=== PATIENT | male | born 1940 | race Caucasian/White ===

== ENCOUNTER 2017-07-28 09:11 | Inpatient (IN) | payer MEDICARE, OTHER ==
[2017-07-28] VITALS (11 sets, daily range): BP systolic 100–137; BP diastolic 57–87
[~2017-07-28] VITALS: Ht 181.6 cm; Wt 123.4 kg
[2017-07-28] MEDS ORDERED: METOPROLOL TARTRATE 5 MG/5 ML VIAL. IV ONE ×2 (09:13→09:30)
[2017-07-28] MEDS ORDERED: DIGOXIN IV 500 MCG/2 ML AMPUL. IV ONE (09:30)
--- NOTE | 2017-07-28 10:00 | RAD ---
Chest radiograph 07/28/2017 9:42 AM INDICATION: Heart palpitations COMPARISON: Chest radiograph December 02, 2016 TECHNIQUE: Frontal view of the chest is provided. FINDINGS: The cardiomediastinal silhouette is borderline enlarged. There are no pleural effusions. There is mild pulmonary vascular congestion. There is no pneumothorax. There is a calcified granuloma in the right upper lobe measuring 5 mm. The lungs are clear. No significant osseous abnormality is identified. IMPRESSION: Borderline enlarged cardiomediastinal silhouette with mild pulmonary vascular congestion may be seen with congestive heart failure. Findings may be accentuated by poor inspiratory excursion. Short-term follow-up two-view chest radiograph may be of benefit. Electronically signed by: Rosa Grayson MD (07/28/2017 9:57 AM) [id number]
[2017-07-28 10:01] LABS: BASO % 0 % (0-3); EOS % 0 % (0-3); HEMATOCRIT 47.1 % (39.0-53.0); HEMOGLOBIN 15.1 g/dL (13.0-17.5); LYMPH # 0.5 x10^3/uL (1.0-4.8); LYMPH % 4 % (24-48); MEAN CORPUSCULAR HEMOGLOBIN 32 pg (25-35); MEAN CORPUSCULAR HGB CONC 32 g/dL (31-37); MEAN CORPUSCULAR VOLUME 101 fL (79-100); MONO # 1.2 x10^3/uL (0.0-1.1); MONO % 9 % (0-9); NEUT # 11.5 x10^3uL (1.8-7.7); NEUT % 87 % (31-73); PLATELET COUNT 198 x10^3/uL (140-400); RED BLOOD COUNT 4.68 x10^6/uL (4.30-5.70); RED CELL DISTRIBUTION WIDTH 16.7 % (11.5-14.5); WHITE BLOOD COUNT 13.3 x10^3/uL (4.0-11.0)
--- NOTE | 2017-07-28 10:14 | EKG ---
[address] [address] Test Date: 2017-07-28 Test Time: 09:15:49 Pat Name: KARTHIK BROWNLEE Department: Room: Gender: M [employer] Lieutenant: : 1940 Requested By: ANGELIQUE LUQUE Order Number: [id number] Reading MD: Bassam Wood MD Measurements Intervals [place] Rate: 172 P: OK: QRS: -38 QRSD: 108 T: 132 QT: 278 QTc: 479 Interpretive Statements ATRIAL FIBRILLATION WITH RVR. LAD NON-SPECIFIC ST/T CHANGES. Electronically Signed On 07-28-2017 16:51:24 CDT by Bassam Wood MD
[2017-07-28] MEDS ORDERED: cefTRIAXone IV Push 1 GM VIAL. IVP ONE (10:30)
--- NOTE | 2017-07-28 10:32 | RAD ---
CT of the head without contrast, 07/28/2017: History: Altered level of consciousness Comparison is made to a study from 11/29/2016. There is moderate cerebral atrophy. There are multiple patchy bilateral deep white matter lucencies compatible with chronic ischemic change these have progressed since the previous study. There is an unchanged old infarct in the anterior aspect of the right basal ganglia/internal capsule. The ventricles have increased in size presumably on a compensatory basis. There is no shift of the midline structures. There is no evidence of acute intracranial hemorrhage or mass effect. IMPRESSION: 1. Worsening chronic ischemic change in the deep white matter bilaterally. 2. Cerebral atrophy. 3. Old right basal ganglia infarct. 4. No acute intracranial abnormality is detected. PQRS Compliance Statement: One or more of the following individualized dose reduction techniques were utilized for this examination: 1. Automated exposure control 2. Adjustment of the mA and/or kV according to patient size 3. Use of iterative reconstruction technique
[2017-07-28 10:34] LABS: ALBUMIN 3.2 g/dL (3.4-5.0); MAGNESIUM 2.4 mg/dL (1.8-2.4); TOTAL BILIRUBIN 2.4 mg/dL (0.2-1.0)
--- NOTE | 2017-07-28 10:35 | PHYS DOC ---
Past History Past Medical History: CVA, Hypertension Past Surgical History: No Surgical History Alcohol Use: None Drug Use: None Adult General Chief Complaint Chief Complaint: RAPID HEART RATE HPI HPI 76-year-old male patient with history of previous CVA and right-sided weakness who lives at home with his brought in by EMS because of generalized weakness. Patient states he was slipped from his bed 2 days ago and with HIS son they put him on recliner yesterday but he didn't move from recliner and was more lethargic than his usual. Patient didn't eat any food and had small amount of liquid. Patient decided to call 911 because of increasing of confusion today. Patient talks in short sentences with shortness of breath but states he is fine and denies any problem. Review of Systems Review of Systems unable to obtain because of medical condition Current Medications Current Medications Current Medications Medications (Trade) Dose Ordered Sig/Kizzy Start Time Stop Time Status Last Admin Dose Admin Ceftriaxone Sodium 1 gm/ Sodium Chloride 50 ml @ 100 mls/hr 1X ONCE 07/28/17 10:30 07/28/17 10:30 DC Ceftriaxone Sodium (Rocephin) 1 gm 1X ONCE 07/28/17 10:30 07/28/17 10:31 DC Digoxin (Lanoxin) 500 mcg 1X ONCE 07/28/17 09:30 07/28/17 09:31 DC 07/28/17 09:51 500 MCG Metoprolol Tartrate (Lopressor Vial) 5 mg 1X ONCE 07/28/17 09:30 07/28/17 09:31 DC 07/28/17 09:26 5 MG Allergies Allergies Allergies Coded Allergies Type Severity Reaction Last Updated Verified No Known Drug Allergies 07/28/17 No Physical Exam Physical Exam Constitutional: Moderate distress, ill looking, lethargic, non-toxic appearance. [] HENT: Normocephalic, atraumatic Eyes: PERRLA, EOMI, conjunctiva normal, no discharge. [] Neck: Normal range of motion, no tenderness, supple, no stridor. [] Cardiovascular: Irregularly irregular with tachycardia Lungs & Thorax: Decrease of breath sounds with basilar crackles Abdomen: Bowel sounds normal, soft, no tenderness, no masses, no pulsatile masses. [] Skin: Warm, dry, no erythema, no rash. [] Back: No tenderness, no CVA tenderness. [] Extremities: No tenderness, no cyanosis, no clubbing, lower extremity 3+ edema. [] Neurologic: Alert and oriented X 2, right upper and lower extremity weakness. [] Psychologic: Unable to evaluate Current Patient Data Vital Signs Vital Signs Date Time Temp Pulse Resp B/P (MAP) Pulse Ox O2 Delivery O2 Flow Rate FiO2 07/28/17 10:19 139 37 134/102 (113) 94 Nasal Cannula 2.0 07/28/17 09:11 97.5 Lab Results Laboratory Tests Test 07/28/17 09:37 White Blood Count 13.3 x10^3/uL (4.0-11.0) H Red Blood Count 4.68 x10^6/uL (4.30-5.70) Hemoglobin 15.1 g/dL (13.0-17.5) Hematocrit 47.1 % (39.0-53.0) Mean Corpuscular Volume 101 fL (79-100) H Mean Corpuscular Hemoglobin 32 pg (25-35) Mean Corpuscular Hemoglobin Concent 32 g/dL (31-37) Red Cell Distribution Width 16.7 % (11.5-14.5) H Platelet Count 198 x10^3/uL (140-400) Neutrophils (%) (Auto) 87 % (31-73) H Lymphocytes (%) (Auto) 4 % (24-48) L Monocytes (%) (Auto) 9 % (0-9) Eosinophils (%) (Auto) 0 % (0-3) Basophils (%) (Auto) 0 % (0-3) Neutrophils # (Auto) 11.5 x10^3uL (1.8-7.7) H Lymphocytes # (Auto) 0.5 x10^3/uL (1.0-4.8) L Monocytes # (Auto) 1.2 x10^3/uL (0.0-1.1) H Eosinophils # (Auto) 0.0 x10^3/uL (0.0-0.7) Basophils # (Auto) 0.0 x10^3/uL (0.0-0.2) Lactic Acid Level 3.9 mmol/L (0.4-2.0) H Troponin I Quantitative 0.086 ng/mL (0-0.055) H EKG EKG EKG interpreted by me. EKG at 0915 showed atrial fibrillation with RVR at rate of 172, abnormal left axis deviation, left anterior fascicular block, T-wave abnormality in lateral leads, poor R-wave progress in anterior leads[] Radiology/Procedures Radiology/Procedures [] [address] [address] IMAGING REPORT Signed PATIENT: KARTHIK BROWNLEE ACCOUNT: [id number] : 1940 LOCATION: ER AGE: 76 SEX: M EXAM STATUS: REG ER ORD. PHYSICIAN: ANGELIQUE LUQUE MD REASON: altered level of consciousness PROCEDURE: CT HEAD WO CONTRAST CT of the head without contrast, 07/28/2017: History: Altered level of consciousness Comparison is made to a study from 11/29/2016. There is moderate cerebral atrophy. There are multiple patchy bilateral deep white matter lucencies compatible with chronic ischemic change these have progressed since the previous study. There is an unchanged old infarct in the anterior aspect of the right basal ganglia/internal capsule. The ventricles have increased in size presumably on a compensatory basis. There is no shift of the midline structures. There is no evidence of acute intracranial hemorrhage or mass effect. IMPRESSION: 1. Worsening chronic ischemic change in the deep white matter bilaterally. 2. Cerebral atrophy. 3. Old right basal ganglia infarct. 4. No acute intracranial abnormality is detected. PQRS Compliance Statement: One or more of the following individualized dose reduction techniques were utilized for this examination: 1. Automated exposure control 2. Adjustment of the mA and/or kV according to patient size 3. Use of iterative reconstruction technique DICTATED AND SIGNED BY: SUSANNAH ROSALES MD DATE: 07/28/17 1026 CC: TOMY GLEASON MD; ANGELIQUE LUQUE MD ~ [address] [address] IMAGING REPORT Signed PATIENT: KARTHIK BROWNLEE ACCOUNT: [id number] : 1940 LOCATION: ER AGE: 76 SEX: M EXAM STATUS: REG ER ORD. PHYSICIAN: ANGELIQUE LUQUE MD REASON: palpitation PROCEDURE: PORTABLE CHEST 1V Chest radiograph 07/28/2017 9:42 AM INDICATION: Heart palpitations COMPARISON: Chest radiograph December 02, 2016 TECHNIQUE: Frontal view of the chest is provided. FINDINGS: The cardiomediastinal silhouette is borderline enlarged. There are no pleural effusions. There is mild pulmonary vascular congestion. There is no pneumothorax. There is a calcified granuloma in the right upper lobe measuring 5 mm. The lungs are clear. No significant osseous abnormality is identified. IMPRESSION: Borderline enlarged cardiomediastinal silhouette with mild pulmonary vascular congestion may be seen with congestive heart failure. Findings may be accentuated by poor inspiratory excursion. Short-term follow-up two-view chest radiograph may be of benefit. Electronically signed by: Cliff Quintana MD (07/28/2017 9:57 AM) [id number] DICTATED AND SIGNED BY: CLIFF QUINTANA MD DATE: 07/28/17 0956 CC: TOMY GLEASON MD; ANGELIQUE LUQUE MD ~ Course & Med Decision Making Course & Med Decision Making Pertinent Labs and Imaging studies reviewed. (See chart for details) Evolution of patient in ER showed 76-year-old male patient brought in by EMS because of generalized weakness. Patient had atrial flutter patient with RVR and heart rate of 170 at arrival to ER with blood pressure 140s. He was lethargic and disoriented. Patient treated with Lopressor and digoxin with marked improvement of heart rate 140s. Dr. galaviz informed at 1035 via his nurse practitioner and he commented Esmololol drip that was not available and Verapamil 5 mg IV was given. Patient had lactic acid of 2.9. Most likely related to his poor perfusion at 1 dose of antibiotic was given. IV fluid was not given because of chest x-ray abnormality for CHF and BNP of 13,000 and lower extremity edema. Troponin was mildly elevated because of CHF. Patient had renal insufficiency and elevation of liver function tests. Patient had PCO2 of 80 in ABG and started on BiPAP with improvement of CO2 to 43. Dr. Gleason informed at 1155 and agreed with plan of admitting patient. Dragon Disclaimer Dragon Disclaimer This electronic medical record was generated, in whole or in part, using a voice recognition dictation system. Departure Departure: Impression: Primary Impression: Atrial fibrillation with RVR Additional Impressions: Altered level of consciousness CHF (congestive heart failure) Renal insufficiency Lactic acidosis CO2 narcosis SIRS (systemic inflammatory response syndrome) Elevated bilirubin Elevated liver function tests Disposition: 09 ADMITTED INPATIENT (At 1050) Admitting Physician: Tomy Gleason Condition: GUARDED Referrals: TOMY GLEASON MD (PCP) Critical Care Time Critical care time was [110] minutes exclusive of procedures. Problem Qualifiers ANGELIQUE LUQUE MD July 28, 2017 10:35
[2017-07-28 10:40] LABS: BGAS PH 7.35 (7.35-7.46)
[2017-07-28] MEDS ORDERED: ESMOLOL 2500MG/250ML PREMIX 250 ML IV ONE ×2 (10:45→13:30)
[2017-07-28 10:54] LABS: DIRECT BILIRUBIN 1.5 mg/dL (0.0-0.2)
[2017-07-28] MEDS ORDERED: VERAPAMIL 5 MG/2 ML VIAL. IV ONE (11:15)
[2017-07-28 12:51] LABS: BGAS PH 7.36 (7.35-7.46)
[2017-07-28 15:38] LABS: AMPHETAMINE/METHAMPHETAMINE NEG (NEG); BARBITURATES NEG (NEG); BENZODIAZEPINES NEG (NEG); CANNABINOIDS POS (NEG); COCAINE NEG (NEG); METHADONE NEG (NEG); OPIATES NEG (NEG); PHENCYCLIDINE NEG (NEG)
[2017-07-28 15:57] LABS: BACTERIA,URINE 0 /HPF (0-FEW); BILIRUBIN,URINE NEG (NEG); CLARITY,URINE TURBID; COLOR,URINE AMBER; GLUCOSE,URINE NEG (NEG); NITRITE,URINE NEG (NEG); SQUAMOUS EPITHELIAL CELL,UR OCC /LPF; UROBILINOGEN,URINE 4 mg/dL (0.2 mg/dL); WBC,URINE 0 /HPF (0-4)
[2017-07-28 15:58] LABS: HYALINE CASTS, URINE MOD /HPF
[2017-07-28] MEDS ORDERED: FUROSEMIDE 40 MG/4 ML VIAL IVP ONE (17:15)
[2017-07-28] MEDS ORDERED: FUROSEMIDE 20 MG/2 ML VIAL IVP ONE (17:15)
[2017-07-28] MEDS: IPRATRPIUM/ALBUTEROL 0.5/2.5MG 3 ML NEBU. NEB SCH ×2 (17:18→21:37)
[2017-07-28 17:25] LABS: ACETAMIN < 2.0 mcg/mL (10-30)
[2017-07-28] MEDS ORDERED: VANCOMYCIN 2 GM in IV NORMAL SALINE 500ML 500 ML IV ONE (17:30)
[2017-07-28 17:33] LABS: ALBUMIN 2.9 g/dL (3.4-5.0); DIRECT BILIRUBIN 1.2 mg/dL (0.0-0.2); TOTAL BILIRUBIN 1.8 mg/dL (0.2-1.0); TOTAL PROTEIN 7.3 g/dL (6.4-8.2)
[2017-07-28 17:56] LABS: CALCIUM 8.5 mg/dL (8.5-10.1); CREATININE 2.3 mg/dL (0.7-1.3); GFR 27.9
[2017-07-28] MEDS ORDERED: ONDANSETRON PF 4 MG/2 ML VIAL. IV PRN (19:00)
--- NOTE | 2017-07-28 19:00 | RAD ---
ABDOMEN LTD History: Elevated liver enzymes Comparison: None. Findings: Multiple sonographic images of the abdomen are submitted. Reportedly exam was very difficult due to patient being unresponsive and unable to suspend respiration. Inferior vena cava, pancreas, most of the abdominal aorta are not well visualized. Of the limited visualized abdominal aorta, there is dilatation up to about 4.4 cm in caliber of the proximal to mid segment. There is a gallstone present estimated at about 1.7 cm. There is nonspecific gallbladder wall thickening about 0.4 cm. No focal hepatic lesion is demonstrated. There is coarsening of the echotexture of the liver. Right lobe of the liver measured 17.1 cm longitudinal. Common bile duct is within normal limits at 0.5 cm. Right kidney measures 10.5 x 5.8 x 5.1 cm without hydronephrosis. There is an echogenic focus of the right kidney up to 1.4 cm, possible calculus. Impression: 1. There is likely aneurysmal dilatation of the abdominal aorta up to about 4.4 cm although abdominal aorta poorly visualized due to bowel gas. 2. There is likely nonobstructive right renal calculus. 3. There is cholelithiasis and nonspecific gallbladder wall thickening, no biliary ductal dilatation. 4. There is hepatic steatosis. Electronically signed by: Mal Gandhi MD (07/28/2017 6:57 PM) [facility]
[2017-07-28] MEDS: PIP/TAZO PER PHARMACY MC PRN (19:18)
[2017-07-28] MEDS: VANCOMYCIN PER PHARMACY MC PRN (19:20)
--- NOTE | 2017-07-28 19:55 | HP ---
ADMIT DATE: 07/28/2017 HISTORY OF PRESENT ILLNESS: A 76-year-old male with history of change in mental status. thinks he may have had another stroke. He had one previously in 2012. The patient was found by EMS to have heart rate of 170, atrial fibrillation with rapid ventricular response. The patient was brought in through the Emergency Room where he was placed on esmolol; however, the patient was also noted to have positive lactic acid, which could be from the AFib, but the patient also has had a history of seizures. He has also had a marked change in mental status while he is basically unconscious and comatose, unresponsive, although his pupils are reactive to light and accommodation. He is on a BiPAP presently to help him breathe ____ oxygen. Otherwise, the patient is markedly swollen with coarse breath sounds and obviously in heart failure. The patient was admitted for numerous medical problems as noted above including none other than sepsis, acute congestive heart failure, atrial fibrillation with rapid ventricular response, history of stroke, change in mental status, basically encephalopathy, unknown etiology and so forth. PAST MEDICAL HISTORY: The patient has had a history of stroke as well as seizure activity, atrial fibrillation, cardiac symptoms, congestive heart failure, hypertension, respiratory failure, musculoskeletal disorder, right-sided weakness from the old CVA. IMMUNIZATIONS: Of influenza pneumococcal are up-to-date. ALLERGIES: He has no known allergies. MEDICATIONS: Are not listed in the chart. Apparently, he was just on Keppra as a patient, other medication unable to get a history from the patient. SOCIAL HISTORY: There is no history of smoking, alcohol or drug use; however, the patient's drug screen did show that he had some THC in any case, as noted. REVIEW OF SYSTEMS: Unable to obtain as the patient is basically unconscious. PHYSICAL EXAMINATION: GENERAL: The patient in turn, on examination, is an ill-appearing male, markedly obtunded. VITAL SIGNS: Blood pressure 108/78, pulse anywhere from 152 down to 72 with a respiratory rate of 34, temperature actually is hypothermic at 97.5. He is on 2 liters with BiPAP at the present time at 96%. HEENT: The patient's head is atraumatic. He has had his hair shaved off. The patient's otherwise eyes are approximately 3-4 mm, reactive to light and accommodation, unable to track, unable to follow orders. Mouth and throat has the device in the BiPAP. NECK: Seems to be supple enough, no obvious bruits. LUNGS: Are diminished with rhonchi noted in the bases. CARDIOVASCULAR: Irregularly irregular rhythm, tachycardic. ABDOMEN: Soft, protuberant, nontender. No rebounding or guarding. Positive bowel sounds, no hepatosplenomegaly noted. EXTREMITIES: Without clubbing, cyanosis, but there is 1+ three pitting edema. Pulse is noted distally. NEUROLOGIC: Not alert comatose, unresponsive. Reflexes are diminished, some rigidity in the left arm consistent with previous history of stroke. LABORATORY DATA: Show white count of 13. Hemoglobin and hematocrit rest of the differential there. The patient's lactic acid was elevated at 3.9, troponin 0.086, elevated BNP of 13,000. For whatever reason, some of the other labs such as sodium, potassium are not available as yet. Urines: Marked increased specific gravity with red blood cells in the urine. Blood gas was also performed 7.36, pCO2 of 43, pO2 72 that's on the BiPAP at 40%. IMPRESSION AND PLAN: Acute encephalopathy, acute new onset of atrial fibrillation with rapid ventricular response, acute systolic congestive heart failure. We will order echocardiogram. Sepsis, the patient is placed on vancomycin and Zosyn. Blood cultures drawn. The atrial fibrillation with rapid ventricular response, being controlled with esmolol titrated. Elevated liver enzymes, abnormal liver enzymes, the patient will go ahead and get a hepatitis screen and an abdominal ultrasound to look for any possible causes there. The patient's urine output seems to be very copious. At the present time, we are waiting for Cardiology. Hold off on Lasix. His blood pressure presently was only approximately 100/70, so are holding until Cardiology will get here and they said they will be here soon. In any case, the patient severe case, he is in the ICU and increased level of care obviously for his multiplicity of medical problems. TOMY GLEASON MD DR: CANDY/saw JOB#: [id number] / [id number]
[2017-07-28] MEDS: PIPERACILLIN/TAZOBACTAM 3.375 GM in IV NORMAL SALINE 50ML 50 ML IV SCH (20:04)
[2017-07-28] MEDS: LACTOBACILLUS RHAMNOSUS GG 1 CAPSULE. PO SCH (21:00)
[2017-07-28] MEDS: NYSTATIN TOPICAL POWDER 15GM BOTTLE. TP SCH (21:01)
[2017-07-28] MEDS: ESMOLOL 2500MG/250ML PREMIX 250 ML IV PRN (21:44)
[2017-07-29] VITALS (22 sets, daily range): BP systolic 71–126; BP diastolic 44–100
[2017-07-29] MEDS: PIPERACILLIN/TAZOBACTAM 3.375 GM in IV NORMAL SALINE 50ML 50 ML IV SCH ×4 (01:11→20:34)
[2017-07-29] MEDS: IPRATRPIUM/ALBUTEROL 0.5/2.5MG 3 ML NEBU. NEB SCH ×4 (04:50→20:10)
[2017-07-29 08:11] LABS: ALBUMIN 2.4 g/dL (3.4-5.0); ALBUMIN/GLOBULIN RATIO 0.6 (1.0-1.7); CALCIUM 7.8 mg/dL (8.5-10.1); CREATININE 2.4 mg/dL (0.7-1.3); GFR 26.5; MAGNESIUM 2.1 mg/dL (1.8-2.4); TOTAL BILIRUBIN 1.5 mg/dL (0.2-1.0); TOTAL PROTEIN 6.3 g/dL (6.4-8.2)
--- NOTE | 2017-07-29 08:27 | RAD ---
EXAM: Chest, single view. HISTORY: Shortness of air. COMPARISON: 07/28/2017. FINDINGS: A frontal view of the chest is obtained. There is stable bilateral lower lobe predominant increased interstitial opacity suggesting congestion. There is no consolidation, pleural effusion or pneumothorax. The heart is normal in size. There are calcified granulomas. IMPRESSION: Suspected stable pulmonary congestion. Electronically signed by: Stacey Kc MD (07/29/2017 8:24 AM) [id number]
[2017-07-29 08:46] LABS: BASO % 0 % (0-3); EOS % 0 % (0-3); HEMATOCRIT 41.5 % (39.0-53.0); HEMOGLOBIN 13.5 g/dL (13.0-17.5); LYMPH # 0.4 x10^3/uL (1.0-4.8); LYMPH % 4 % (24-48); MEAN CORPUSCULAR HEMOGLOBIN 32 pg (25-35); MEAN CORPUSCULAR HGB CONC 33 g/dL (31-37); MEAN CORPUSCULAR VOLUME 99 fL (79-100); MONO # 0.8 x10^3/uL (0.0-1.1); MONO % 7 % (0-9); NEUT % 89 % (31-73); PLATELET COUNT 161 x10^3/uL (140-400); RED BLOOD COUNT 4.19 x10^6/uL (4.30-5.70); RED CELL DISTRIBUTION WIDTH 16.6 % (11.5-14.5); WHITE BLOOD COUNT 11.2 x10^3/uL (4.0-11.0)
[2017-07-29] MEDS: NYSTATIN TOPICAL POWDER 15GM BOTTLE. TP SCH ×2 (09:00→21:07)
[2017-07-29] MEDS: LACTOBACILLUS RHAMNOSUS GG 1 CAPSULE. PO SCH ×2 (09:00→21:07)
--- NOTE | 2017-07-29 09:39 | CONS ---
DATE OF CONSULTATION: 07/28/2017 REASON FOR CONSULTATION: Atrial fibrillation with rapid ventricular response. HISTORY OF PRESENT ILLNESS: The patient is a 76-year-old male who presented today to [facility] Emergency Room at 10 a.m. with his . He complained of becoming more and more short of breath. Due to patient's mental status changes, further history was limited and the patient was evaluated in the ER with the following: Initial electrocardiogram found new onset atrial fibrillation with RVR and heart rate of 172. Due to leukocytosis he was started on empiric antibiotic therapy. He was also given intravenous lasix for presumed congestive heart failure. Furthermore, CT of the head showing worsening ischemic change, cerebral atrophy, and old basal ganglia infarct. Upon chart review and information from family, there was no preceding fevers, sick contacts, new medication changes but per family there was worsening exertional dyspnea, orthopnea and lower extremity edema for the last 2 weeks. PAST MEDICAL HISTORY: 1. Cerebrovascular accident in 2012, 2. Hypertension 3. Possible hyper/hypothyroidism 4. History of seizures. SOCIAL HISTORY: Patient his , no other history available at this time. FAM Hx: Non-contributory ALL: NKDA. MEDICATIONS: Esmolol gtt. Lasix 80mg IVP Rocephin Vancomycin PHYSICAL EXAMINATION: VITAL SIGNS: His blood pressure was 100/71, blood pressure range was 102-142 systolic over 81-84 diastolic, heart rate is 126, temperature 98.5. Pox- 97% on BiPAP. HEENT: NC/AT, EO not tested. HEART: Irregular rhythm. No murmurs. LUNGS: Clear to auscultation bilaterally anteriorly. ABD: Soft, NT, no rebound or guarding. EXTREMITIES: Had +3/4 pitting edema, nonpalpable pulses in the lower extremity, NEURO: Non-response, but has spontaneous movements. The patient has a Se[place] in place. The patient has a GCS of 5. LABORATORY DATA: BNP 18243 Significant transaminitis ALT/AST 1700/3700 Cr 2.3 ASSESSMENT: 1. Altered mental status, obtunded, likely secondary to acute liver failure. 2. Elevated transaminases. 3. Acute exacerbation of congestive heart failure. 4 Atrial fibrillation with rapid ventricular response. PLAN: 1. Obtain echocardiogram. Check for ejection fraction. 2. Lasix 80 mg IV. 3. Obtain hepatitis panel. 4. Obtain acetaminophen tox screen. 5. Continue dig load. Monitor for worsening renal function and K levels. Difficult to control afib as his medical regimen is limited due to liver and renal failure. Suspect that overall presentation is related metabolic derangements in the setting of afib with RVR and acute on chronic decompensated systolic and diastolic HF. Will consider anticoagulation for afib. ANTONIO BUITRAGO MD DR: JAKE/saw JOB#: [id number] / [id number] LARRY
--- NOTE | 2017-07-29 09:55 | PDOC ---
PROGRESS NOTES Diagnosis Problem Problems Medical Problems: (1) Altered level of consciousness Status: Acute (2) Atrial fibrillation with RVR Status: Acute (3) CHF (congestive heart failure) Status: Acute (4) CO2 narcosis Status: Acute (5) Elevated bilirubin Status: Acute (6) Lactic acidosis Status: Acute (7) Renal insufficiency Status: Acute (8) SIRS (systemic inflammatory response syndrome) Status: Acute Assessment Problems Medical Problems: (1) Altered level of consciousness Status: Acute (2) Atrial fibrillation with RVR Status: Acute (3) CHF (congestive heart failure) Status: Acute (4) CO2 narcosis Status: Acute (5) Elevated bilirubin Status: Acute (6) Lactic acidosis Status: Acute (7) Renal insufficiency Status: Acute (8) SIRS (systemic inflammatory response syndrome) Status: Acute 1. Altered mental status - improved this am 2. atrial fibrillation with RVR 3. acute on chronic systolic/diastolic? heart failure 4. hypotension 5. Renal failure ?acute on chronic - minimally more elevated today with mild hypernatremia. He appears to be somewhat intravascularly depleted. 6. Elevated transaminases - improving. Per PCP 7. protein malnutrition Echo pending for eval of LV function. Will refrain from more diuresis at this time as he has no respiratory distress and continues to be in renal failure. Will resume esmolol for rate control, Albumin this am, and add neosynephrine as needed for maintaining blood pressure. Urine for lytes and renal duplex. Subjective awake and interacting verbally. denies pain, dyspnea, palpitations. Objective Vital Signs Date Time Temp Pulse Resp B/P (MAP) Pulse Ox O2 Delivery O2 Flow Rate FiO2 07/29/17 04:50 97 07/29/17 04:41 103 13 84/52 (63) BiPAP/CPAP 07/29/17 04:00 3.0 07/28/17 19:49 97.7 Intake and Output 07/29/17 07:00 Intake Total 800 ml Output Total 2375 ml Balance -1575 ml Intake Oral 0 ml IV Total 800 ml Output Urine Total 2375 ml Abdomen: Normal bowel sounds, Soft Heart: Other (IRR, no gallops, clicks or rubs) Extremities: Other (+3 lower extremity edema bilaterally) General: Alert, Cooperative, No acute distress Lungs: Other (few crackles bases bilaterally) Psych/Mental Status: Mood NL, Other (mildly confused but easily re-oriented) Review of Relevant I have reviewed the following items carla (where applicable) has been applied. Labs Laboratory Tests Test 07/28/17 09:18 07/28/17 09:37 07/28/17 12:25 07/28/17 12:33 Blood Gas pH 7.35 (7.35-7.46) 7.36 (7.35-7.46) Blood Gas PCO2 40 mmHg (35-46) 43 mmHg (35-46) Blood Gas PO2 80 mmHg (71-100) 72 mmHg (71-100) Blood Gas HCO3 22 mmol/L (21-28) 24 mmol/L (21-28) Arterial Bld O2 Saturation (Calc) 95 % (92-99) 94 % (92-99) FiO2 28 % 40 % White Blood Count 13.3 x10^3/uL (4.0-11.0) Red Blood Count 4.68 x10^6/uL (4.30-5.70) Hemoglobin 15.1 g/dL (13.0-17.5) Hematocrit 47.1 % (39.0-53.0) Mean Corpuscular Volume 101 fL (79-100) Mean Corpuscular Hemoglobin 32 pg (25-35) Mean Corpuscular Hemoglobin Concent 32 g/dL (31-37) Red Cell Distribution Width 16.7 % (11.5-14.5) Platelet Count 198 x10^3/uL (140-400) Neutrophils (%) (Auto) 87 % (31-73) Lymphocytes (%) (Auto) 4 % (24-48) Monocytes (%) (Auto) 9 % (0-9) Eosinophils (%) (Auto) 0 % (0-3) Basophils (%) (Auto) 0 % (0-3) Neutrophils # (Auto) 11.5 x10^3uL (1.8-7.7) Lymphocytes # (Auto) 0.5 x10^3/uL (1.0-4.8) Monocytes # (Auto) 1.2 x10^3/uL (0.0-1.1) Eosinophils # (Auto) 0.0 x10^3/uL (0.0-0.7) Basophils # (Auto) 0.0 x10^3/uL (0.0-0.2) Prothrombin Time 19.5 SEC (9.4-11.4) Prothromb Time International Ratio 1.9 (0.9-1.1) Activated Partial Thromboplast Time 27 SEC (23-33) Lactic Acid Level 3.9 mmol/L (0.4-2.0) 2.9 mmol/L (0.4-2.0) Magnesium Level 2.4 mg/dL (1.8-2.4) Total Bilirubin 2.4 mg/dL (0.2-1.0) Direct Bilirubin 1.5 mg/dL (0.0-0.2) Aspartate Amino Transf (AST/SGOT) 3714 U/L (15-37) Alanine Aminotransferase (ALT/SGPT) 1763 U/L (16-63) Alkaline Phosphatase 99 U/L (46-116) Creatine Kinase 70 U/L (39-308) Creatine Kinase MB (Mass) 2.0 ng/mL (0.0-3.6) Creatine Kinase MB Relative Index 2.9 % (0-4) Troponin I Quantitative 0.086 ng/mL (0-0.055) GI-Zbi-D-Type Natriuretic Peptide 52148 pg/mL (0-449) Total Protein 8.0 g/dL (6.4-8.2) Albumin 3.2 g/dL (3.4-5.0) Lipase 86 U/L (73-393) Test 07/28/17 13:14 07/28/17 13:15 07/28/17 14:15 07/28/17 15:25 Urine Collection Type Unknown Urine Color Chen Urine Clarity Turbid Urine pH 5.0 Urine Specific [place] >=1.030 Urine Protein 100 mg/dl (NEG-TRACE) Urine Glucose (UA) Neg mg/dL (NEG) Urine Ketones (Stick) Neg mg/dL (NEG) Urine Blood Mod (NEG) Urine Nitrite Neg (NEG) Urine Bilirubin Neg (NEG) Urine Urobilinogen Dipstick 4 mg/dL (0.2 mg/dL) Urine Leukocyte Esterase Neg (NEG) Urine RBC 11-20 /HPF (0-2) Urine WBC 0 /HPF (0-4) Urine Squamous Epithelial Cells Occ /LPF Urine Bacteria 0 /HPF (0-FEW) Urine Hyaline Casts Mod /HPF Urine Opiates Screen Neg (NEG) Urine Methadone Screen Neg (NEG) Urine Barbiturates Neg (NEG) Urine Phencyclidine Screen Neg (NEG) Urine Amphetamine/Methamphetamine Neg (NEG) Urine Benzodiazepines Screen Neg (NEG) Urine Cocaine Screen Neg (NEG) Urine Cannabinoids Screen Pos (NEG) Urine Ethyl Alcohol Neg (NEG) Nasal Screen MRSA (PCR) Negative (Negative) Troponin I Quantitative 0.079 ng/mL (0-0.055) Ammonia 37 mcmol/L (11-34) Test 07/28/17 15:26 07/28/17 20:00 07/29/17 05:51 Sodium Level 142 mmol/L (136-145) 147 mmol/L (136-145) Potassium Level 5.0 mmol/L (3.5-5.1) 4.0 mmol/L (3.5-5.1) Chloride Level 105 mmol/L (98-107) 108 mmol/L (98-107) Carbon Dioxide Level 27 mmol/L (21-32) 32 mmol/L (21-32) Anion Gap 10 (6-14) 7 (6-14) Blood Urea Nitrogen 63 mg/dL (8-26) 69 mg/dL (8-26) Creatinine 2.3 mg/dL (0.7-1.3) 2.4 mg/dL (0.7-1.3) Estimated GFR (Cockcroft-Gault) 27.9 26.5 Glucose Level 134 mg/dL (70-99) 116 mg/dL (70-99) Calcium Level 8.5 mg/dL (8.5-10.1) 7.8 mg/dL (8.5-10.1) Total Bilirubin 1.8 mg/dL (0.2-1.0) 1.5 mg/dL (0.2-1.0) Direct Bilirubin 1.2 mg/dL (0.0-0.2) Gamma Glutamyl Transpeptidase 67 U/L (10-85) Aspartate Amino Transf (AST/SGOT) 2171 U/L (15-37) 1032 U/L (15-37) Alanine Aminotransferase (ALT/SGPT) 1815 U/L (16-63) 1374 U/L (16-63) Alkaline Phosphatase 93 U/L (46-116) 78 U/L (46-116) Creatine Kinase 56 U/L (39-308) Total Protein 7.3 g/dL (6.4-8.2) 6.3 g/dL (6.4-8.2) Albumin 2.9 g/dL (3.4-5.0) 2.4 g/dL (3.4-5.0) Acetaminophen Level < 2.0 mcg/mL (10-30) Acetaminophen Last Dose Date 07/27/17 Acetaminophen Last Dose Time 1700 D-Dimer ([place]) 8.91 mg/L (0.00-0.50) Troponin I Quantitative 0.090 ng/mL (0-0.055) White Blood Count 11.2 x10^3/uL (4.0-11.0) Red Blood Count 4.19 x10^6/uL (4.30-5.70) Hemoglobin 13.5 g/dL (13.0-17.5) Hematocrit 41.5 % (39.0-53.0) Mean Corpuscular Volume 99 fL (79-100) Mean Corpuscular Hemoglobin 32 pg (25-35) Mean Corpuscular Hemoglobin Concent 33 g/dL (31-37) Red Cell Distribution Width 16.6 % (11.5-14.5) Platelet Count 161 x10^3/uL (140-400) Neutrophils (%) (Auto) 89 % (31-73) Lymphocytes (%) (Auto) 4 % (24-48) Monocytes (%) (Auto) 7 % (0-9) Eosinophils (%) (Auto) 0 % (0-3) Basophils (%) (Auto) 0 % (0-3) Neutrophils # (Auto) 10.0 x10^3uL (1.8-7.7) Lymphocytes # (Auto) 0.4 x10^3/uL (1.0-4.8) Monocytes # (Auto) 0.8 x10^3/uL (0.0-1.1) Eosinophils # (Auto) 0.0 x10^3/uL (0.0-0.7) Basophils # (Auto) 0.0 x10^3/uL (0.0-0.2) BUN/Creatinine Ratio 29 (6-20) Magnesium Level 2.1 mg/dL (1.8-2.4) Albumin/Globulin Ratio 0.6 (1.0-1.7) Microbiology 07/28/17 Blood Culture - Preliminary, Resulted NO GROWTH AFTER 1 DAY Medications Current Medications Metoprolol Tartrate (Lopressor Vial) 5 mg STK-MED ONCE IV ; Start 07/28/17 at 09: 13; Stop 07/28/17 at 09:14; Status DC Metoprolol Tartrate (Lopressor Vial) 5 mg 1X ONCE IV Last administered on at 09:26; Start 07/28/17 at 09:30; Stop 07/28/17 at 09:31; Status DC Digoxin (Lanoxin) 500 mcg 1X ONCE IV Last administered on 07/28/17at 09:51; Start 07/28/17 at 09:30; Stop 07/28/17 at 09:31; Status DC Ceftriaxone Sodium 1 gm/ Sodium Chloride 50 ml @ 100 mls/hr 1X ONCE IV ; Start 07/28/17 at 10:30; Stop 07/28/17 at 10:30; Status DC Ceftriaxone Sodium (Rocephin) 1 gm 1X ONCE IVP Last administered on 07/28/17at 10:46; Start 07/28/17 at 10:30; Stop 07/28/17 at 10:31; Status DC Esmolol HCl 250 ml @ 0 mls/hr 1X ONCE IV ; Start 07/28/17 at 10:45; Stop at 10:52; Status DC Verapamil HCl (Verapamil HCl) 5 mg 1X ONCE IV Last administered on 07/28/17at 11 :22; Start 07/28/17 at 11:15; Stop 07/28/17 at 11:18; Status DC Esmolol HCl 250 ml @ 0 mls/hr 1X ONCE IV Last administered on 07/28/17at 17:15; Start 07/28/17 at 13:30; Stop 07/28/17 at 13:31; Status DC Ceftriaxone Sodium (Rocephin) 1 gm Q24H IVP ; Start 07/29/17 at 10:30; Stop 01/06 at 10:30; Status DC Esmolol HCl 250 ml @ 0 mls/hr CONT PRN IV SEE I/O RECORD Last administered on at 21:44; Start 07/28/17 at 15:45 Albuterol/ Ipratropium (Duoneb) 3 ml RTQID NEB Last administered on 07/29/17at 04:50; Start 07/28/17 at 16:00 Nystatin (Nystop) 1 tisha BID TP Last administered on 07/28/17at 21:01; Start at 21:00 Piperacillin Sod/ Tazobactam Sod (Zosyn Per Pharmacy) 1 each PRN DAILY PRN MC SEE COMMENTS Last administered on 07/28/17at 19:18; Start 07/28/17 at 17:00 Vancomycin HCl (Vanco Per Pharmacy) 1 each PRN DAILY PRN MC SEE COMMENTS Last administered on 07/28/17at 19:20; Start 07/28/17 at 17:00 Vancomycin HCl 2 gm/Sodium Chloride 500 ml @ 250 mls/hr 1X ONCE IV Last administered on 07/28/17at 17:14; Start 07/28/17 at 17:30; Stop 07/28/17 at 19:29; Status DC Furosemide (Lasix) 80 mg 1X ONCE IVP ; Start 07/28/17 at 17:15; Stop 07/28/17 at 17:15; Status DC Furosemide (Lasix) 80 mg 1X ONCE IVP Last administered on 07/28/17at 18:32; Start 07/28/17 at 17:15; Stop 07/28/17 at 17:16; Status DC Ondansetron HCl (Zofran) 4 mg PRN Q8HRS PRN IV NAUSEA/VOMITING; Start 07/28/17 at 19:00 Piperacillin Sod/ Tazobactam Sod 3.375 gm/Sodium Chloride 50 ml @ 100 mls/hr Q6H IV Last administered on 07/29/17at 01:11; Start 07/28/17 at 20:00 Vancomycin HCl 1.75 gm/Sodium Chloride 500 ml @ 250 mls/hr Q24H IV ; Start 01/06 at 17:00 Vancomycin HCl (Vancomycin Trough Level) 1 each 1X ONCE MC ; Start 07/30/17 at 16:30; Stop 07/30/17 at 16:31 Lactobacillus Rhamnosus (Culturelle) 1 cap BID PO ; Start 07/28/17 at 21:00 Enoxaparin Sodium (Lovenox) 40 mg Q24H SQ ; Start 07/29/17 at 09:00 Vitals/I & O Vital Sign - Last 24 Hours 07/28/17 07/28/17 07/28/17 07/28/17 10:07 10:19 10:32 11:08 Pulse 145 139 144 146 Resp 27 37 28 B/P (MAP) 102/82 (89) 134/102 (113) 126/87 (100) 121/83 (96) Pulse Ox 93 94 94 98 O2 Delivery Nasal Cannula Nasal Cannula Nasal Cannula O2 Flow Rate 2.0 2.0 3.0 07/28/17 07/28/17 07/28/17 07/28/17 11:22 11:29 11:30 11:45 Pulse 147 118 118 Resp 28 34 B/P (MAP) 121/83 127/86 (100) 114/76 (89) Pulse Ox 96 100 93 O2 Delivery BiPAP/CPAP BiPAP/CPAP 07/28/17 07/28/17 07/28/17 07/28/17 12:03 12:49 13:00 13:10 Pulse 122 122 72 Resp 28 28 20 B/P (MAP) 142/84 (103) 126/85 (99) 137/72 (93) Pulse Ox 96 97 100 O2 Delivery BiPAP/CPAP BiPAP/CPAP BiPAP/CPAP O2 Flow Rate 97.0 07/28/17 07/28/17 07/28/17 07/28/17 14:00 15:00 16:05 16:34 Temp 97.5 Pulse 150 124 121 114 Resp 20 20 18 20 B/P (MAP) 109/87 (94) 114/86 (95) 104/81 (89) 100/71 (81) Pulse Ox 97 96 99 98 O2 Delivery BiPAP/CPAP BiPAP/CPAP BiPAP/CPAP BiPAP/CPAP 07/28/17 07/28/17 07/28/17 07/28/17 17:19 18:49 18:51 19:38 Pulse 133 72 106 Resp 22 22 22 B/P (MAP) 101/68 (79) 121/78 (92) 112/66 (81) Pulse Ox 100 99 98 94 O2 Delivery BiPAP/CPAP BiPAP/CPAP BiPAP/CPAP 07/28/17 07/28/17 07/28/17 07/28/17 19:49 20:00 20:30 21:00 Temp 97.7 Pulse 128 Resp 20 B/P (MAP) 100/65 (77) Pulse Ox 99 100 O2 Delivery Bi-pap BiPAP/CPAP 07/28/17 07/28/17 07/28/17 07/29/17 22:00 23:00 23:54 00:04 Pulse 117 113 109 Resp 20 20 20 B/P (MAP) 102/73 (83) 105/57 (73) 95/62 (73) Pulse Ox 100 100 100 O2 Delivery BiPAP/CPAP BiPAP/CPAP Bi-pap BiPAP/CPAP 07/29/17 07/29/17 07/29/17 07/29/17 02:04 03:00 04:00 04:18 Pulse 120 101 108 Resp 21 21 13 B/P (MAP) 71/55 (60) 81/50 (60) 74/44 (54) Pulse Ox 100 98 93 O2 Delivery BiPAP/CPAP BiPAP/CPAP Nasal Cannula BiPAP/CPAP O2 Flow Rate 3.0 07/29/17 07/29/17 04:41 04:50 Pulse 103 Resp 13 B/P (MAP) 84/52 (63) Pulse Ox 99 97 O2 Delivery BiPAP/CPAP Intake and Output 07/28/17 07/28/17 07/29/17 15:00 23:00 07:00 Intake Total 800 ml Output Total 1625 ml 750 ml Balance -825 ml -750 ml DILMA MONAE HEALTH CARE TECHNICIAN July 29, 2017 09:55
[2017-07-29] MEDS: ENOXAPARIN 40 MG/0.4 ML SYRINGE. SQ SCH (10:26)
[2017-07-29] MEDS: ESMOLOL 2500MG/250ML PREMIX 250 ML IV PRN ×2 (10:27→17:34)
[2017-07-29] MEDS ORDERED: ALBUMIN HUMAN 25% 50 ML IV ONE (10:30)
[2017-07-29] MEDS ORDERED: cefTRIAXone IV Push 1 GM VIAL. IVP SCH (10:30)
--- NOTE | 2017-07-29 11:03 | CONS ---
DATE OF CONSULTATION: 07/29/2017 NEUROLOGIC CONSULTATION REFERRING PHYSICIAN: Dr. Chris Gillette. REASON FOR CONSULTATION: Acute mental status changes and shortness of breath. HISTORY OF PRESENT ILLNESS: This is a 76-year-old right-handed male who has had a stroke in 2013 resulted in right-sided weakness and language dysfunction. According to his , the patient's condition has been deteriorating in the last 2 days with progressive mental status changes to the point he became unresponsive yesterday on the day of admission. Currently, the patient is awake and he is cooperative and answers some questions, but he is still confused and disoriented. The patient was found to have atrial fibrillation with rapid ventricular response. He was admitted to Emergency Room for further evaluation. Currently, the patient denies headaches or visual disturbances. Initial nonenhanced head CT scan revealed extensive small vessel white matter ischemic changes bilaterally along with old right basal ganglia infarct. According to his , the patient has been using a walker for ambulation prior to this admission and he was taking care of his hygiene, feeding himself independently; however, his speech somewhat has been dysarthric since the stroke. PAST MEDICAL HISTORY: Significant for a stroke in 2012. He was transferred to [facility] and had extensive workup over there followed by a rehabilitation. History of seizure disorder x 1 on the day of old stroke. He has not been on any anticonvulsant since. History of hypertension, congestive heart failure, atrial fibrillation, COPD. SOCIAL HISTORY: The patient lives with his at home. He quit smoking. He has no history of alcohol drinking or illegal drug use. CURRENT HOME MEDICATIONS: Include albuterol inhaler, otherwise the list is not available at this time. ALLERGIES: No known drug allergies. REVIEW OF SYSTEMS: A 10-point review of systems was performed as mentioned above in history of present illness. PHYSICAL EXAMINATION: GENERAL: Obese white male, not in acute distress. He weighs 245 pounds. VITAL SIGNS: Blood pressure 84/52, respiratory rate 13, pulse is 131, AFib with a rapid ventricular response. Oxygen saturation 99% on BiPAP. HEENT: Normocephalic, atraumatic, otherwise unremarkable. NECK: Supple. Negative for carotid bruit, lymphadenopathy, or thyromegaly. LUNGS: Diminished breath sounds with rales in the bases. CARDIOVASCULAR: Irregularly irregular rhythm, normal S1, S2. ABDOMEN: Soft. Bowel sounds positive. EXTREMITIES: With 3+ pitting edema bilaterally. NEUROLOGIC: Mental Status: The patient is awake. He follows 1-step commands. The speech is slightly dysarthric, with language dysfunction. Memory, judgment, abstract thinkings are difficult to evaluate at this time. Cranial nerves: The pupils are equal and reactive to light. Extraocular movements are intact. There is no nystagmus. There is a mild right facial asymmetry of central type. Hearing is moderately diminished bilaterally. The palate is elevated symmetrically. Sternocleidomastoid muscles are equal bilaterally. Further evaluation is limited at this time. Motor examination : No focal muscle bulk was seen. The tone is increased in the lower extremities. The patient is able to move his upper extremities and slightly move lower extremities. The strength is 4/5 in the right upper extremity and 3/5 in the right lower extremity. The strength elsewhere was 5/5 throughout. Sensory examination revealed diminished pinprick and light touch senses over the right upper and lower extremities. Deep tendon reflexes were symmetric and hypoactive with absent Achilles responses. Gait not tested. LABORATORY DATA: CBC revealed white blood cells of 13,300, hemoglobin 15.1, hematocrit 47.1, platelet count 198,000. Chemistry revealed sodium of 142, potassium 5, chloride 105, CO2 27, BUN is 63, creatinine 2.3, glucose 134, calcium 8.5. Liver enzymes are elevated. Ammonia level is slightly elevated at 37 with elevated troponin level at 0.09. Coagulation: PT is 19.4, INR is 1.9. D-dimer is high at 8.9. Urinalysis, no evidence of urinary tract infections. IMPRESSION: 1. Acute encephalopathy, rule out systemic infections versus metabolic derangements. 2. History of old stroke resulted in right hemiparesis, probably worsening in the last 2 days and not able to rule out new ischemic events. 3. Multiple medical problems include atrial fibrillation with apid ventricular response, , rule out systemic infections, congestive heart failure, renal failure, and moderate respiratory failure. RECOMMENDATION: 1. Cardiology consult with echocardiogram. 2. Swallowing function evaluation. 3. Treat the underlying systemic infections. The patient might need a blood culture. 4. Treat the underlying metabolic derangement and renal failure and edema. 5. Continue with current management initiated by Dr. Gillette. 6. The patient needs extensive rehabilitation when he is medically stable. M Barbara ISRAEL MD DR: Pepito JOB#: [id number] / [id number]
--- NOTE | 2017-07-29 11:10 | CARD ---
MR#: [id number] Date of Study: 07/29/2017 Ordering Physician: DILMA MONAE, Referring Physician: TOMY GLEASON, Tech: BRIGETTE Reyes APPROVED REPORT EXAM: Two-dimensional and M-mode echocardiogram with Doppler and color Doppler. Other Information Quality : FairHR: 138bpm INDICATION Congestive Heart Failure 2D DIMENSIONS RVDd4.0 (2.9-3.5cm)Left Atrium(2D)4.7 (1.6-4.0cm) IVSd1.3 (0.7-1.1cm)Aortic Root(2D)3.5 (2.0-3.7cm) LVDd4.7 (3.9-5.9cm)LVOT Diameter2.5 (1.8-2.4cm) PWd1.6 (0.7-1.1cm)LVDs4.6 (2.5-4.0cm) FS (%) 2.9 %SV6.9 ml LVEF(%)6.7 (>50%) M-Mode DIMENSIONS IVSd1.27 (0.7-1.1cm)LVDd5.15 (4.0-5.6cm) PWd1.39 (0.7-1.1cm)FS (%) 11 % LVDs4.61 (2.0-3.8cm)ESV(Teich)97.7 ml LVEF(%)23 (>50%) Aortic Valve AoV Peak Linus.175.8cm/sAoV VTI26.9cm AO Peak GR.12.4mmHgLVOT Peak Linus.93.1cm/s LVOT VTI 14.54cmAO Mean GR.7mmHg JO (VMAX)2.46hj6ICB (VTI)2.69cm2 Mitral Valve MV E Tcanezzp50.1cm/sMV DECEL [id number] MV A Rafgwrkz10.0cm/sE/A Ratio2.6 Pulmonary Valve PV Peak Kwfwonwt732.8cm/sPV Peak Grad.7mmHg Tricuspid Valve TR P. Wrnjvwxt166kz/sTR Peak Gr.21mmHg LEFT VENTRICLE The left ventricle is normal size. There is mild to moderate concentric left ventricular hypertrophy. The ejection fraction is severely impaired, likely underestimated due to afib with RVR. Suspect EF a pproximately 35% There is global hypokinesis of the left ventricle and due to limited images, wall mo tion is not well visualized. Tissue Doppler imaging reveals moderate left ventricular diastolic dysfu nction. RIGHT VENTRICLE The right ventricle is mildly dilated. RV Systolic function is mildly reduced. ATRIA The left atrium is moderately dilated. The right atrium is mildly dilated. The interatrial septum is intact with no evidence for an atrial septal defect or patent foramen ovale as noted on 2-D or Dopple r imaging. AORTIC VALVE The aortic valve is not well visualized. Doppler and Color Flow revealed no significant aortic regurg itation. There is no significant aortic valvular stenosis. There is no aortic valvular vegetation. MITRAL VALVE Mitral annular calcification is mild to moderate. The mitral valve is calcified and displays decrease d opening. There is no evidence of mitral valve prolapse. There is no mitral valve stenosis. Doppler and Color-flow revealed mild mitral regurgitation. TRICUSPID VALVE The tricuspid valve leaflets are thickened , but open well. Doppler and Color Flow revealed mild tric uspid regurgitation. There is no tricuspid valve prolapse or vegetation. There is no tricuspid valve stenosis. PULMONIC VALVE The pulmonic valve is not well visualized. Doppler and Color Flow revealed no pulmonic valvular regur gitation. There is no pulmonic valvular stenosis. GREAT VESSELS The aortic root is normal in size. The IVC was not visualized. PERICARDIAL EFFUSION There is no pleural effusion. There is no evidence of significant pericardial effusion. Critical Notification Physician Notified Date: 07/29/2017 Time: 09:15 Physician Name:Israel Critical Value: Yes Response Time:09:16 <Conclusion> The ejection fraction is severely impaired, likely underestimated due to afib with RVR. Suspect EF ap proximately 35% There is global hypokinesis of the left ventricle. There is global hypokinesis of the left ventricle and due to limited images, wall motion is not well visualized. Doppler and Color-flow revealed mild mitral regurgitation. Signed by : Bassam Wood, Electronically Approved : 07/29/2017 11:10:15
[2017-07-29] MEDS: PHENYLEPHRINE INJ 20 MG in IV NORMAL SALINE 250ML 250 ML IV PRN ×2 (11:34→18:12)
[2017-07-29 13:47] LABS: HEMOGLOBIN ISTAT 16.3 gm/dL
[2017-07-29] MEDS: VANCOMYCIN 1.75 GM in IV NORMAL SALINE 500ML 500 ML IV SCH (17:35)
[2017-07-30] VITALS (28 sets, daily range): BP systolic 73–134; BP diastolic 54–85
[2017-07-30] MEDS: ESMOLOL 2500MG/250ML PREMIX 250 ML IV PRN ×6 (01:14→21:24)
[2017-07-30] MEDS: PHENYLEPHRINE INJ 20 MG in IV NORMAL SALINE 250ML 250 ML IV PRN ×2 (01:19→15:56)
--- NOTE | 2017-07-30 01:55 | PN ---
DATE: SUBJECTIVE: A 76-year-old male came in with unconsciousness and respiratory failure, placed on BiPAP, doing much better today. The patient is on nasal cannula at the present time. The patient says he is feeling a little better, still fairly weak. He is being diuresed very aggressively by Cardiology. His atrial fibrillation is being controlled with esmolol. So far blood cultures have been unremarkable. White count has come down from 13 to 11, hemoglobin from 15 to 13. His liver enzymes have come down as well. 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 Otherwise, the patient is resting fairly comfortably and making fairly good progress overall. We will continue to monitor him accordingly, otherwise. OBJECTIVE: VITAL SIGNS: Blood pressure 104/60, respiratory rate 20, pulse 125, afebrile. GENERAL: The patient is alert, more oriented. LUNGS: Diminished throughout, poor movement of air. CARDIOVASCULAR: Irregularly irregular rhythm. ABDOMEN: Soft, nontender. EXTREMITIES: With +1 to 2 pitting edema, but markedly improved. LABORATORY DATA: As discussed. IMPRESSION: Therefore, acute encephalopathy, new onset of atrial fibrillation with rapid ventricular response, acute systolic congestive heart failure, sepsis, elevated liver enzymes, respiratory distress. PLAN: The patient to continue on present medications, and make further evaluation along with Cardiology and Neurology. TOMY GLEASON MD DR: CANDY/saw JOB#: [id number] / [id number]
[2017-07-30] MEDS: PIPERACILLIN/TAZOBACTAM 3.375 GM in IV NORMAL SALINE 50ML 50 ML IV SCH ×4 (01:59→20:37)
[2017-07-30] MEDS: IPRATRPIUM/ALBUTEROL 0.5/2.5MG 3 ML NEBU. NEB SCH ×4 (05:55→20:29)
[2017-07-30 06:10] LABS: SODIUM, URINE <60 mmol/L (Not Estab.); UR POTASSIUM 48.6 mmol/L (Not Estab.)
[2017-07-30] MEDS: NYSTATIN TOPICAL POWDER 15GM BOTTLE. TP SCH ×2 (07:23→20:49)
[2017-07-30] MEDS: LACTOBACILLUS RHAMNOSUS GG 1 CAPSULE. PO SCH ×2 (07:23→20:37)
[2017-07-30] MEDS: ENOXAPARIN 40 MG/0.4 ML SYRINGE. SQ SCH (07:24)
[2017-07-30 07:42] LABS: HEMATOCRIT 41.6 % (39.0-53.0); HEMOGLOBIN 13.6 g/dL (13.0-17.5); RED BLOOD COUNT 4.17 x10^6/uL (4.30-5.70); WHITE BLOOD COUNT 9.7 x10^3/uL (4.0-11.0)
[2017-07-30 07:44] LABS: CALCIUM 7.4 mg/dL (8.5-10.1); CREATININE 1.9 mg/dL (0.7-1.3); GFR 34.7; MAGNESIUM 1.8 mg/dL (1.8-2.4)
[2017-07-30 07:47] LABS: POTASSIUM 3.4 mmol/L (3.5-5.1)
--- NOTE | 2017-07-30 09:39 | PDOC ---
PROGRESS NOTES Diagnosis Problem Problems Medical Problems: (1) Altered level of consciousness Status: Acute (2) Atrial fibrillation with RVR Status: Acute (3) CHF (congestive heart failure) Status: Acute (4) CO2 narcosis Status: Acute (5) Elevated bilirubin Status: Acute (6) Lactic acidosis Status: Acute (7) Renal insufficiency Status: Acute (8) SIRS (systemic inflammatory response syndrome) Status: Acute Assessment Problems Medical Problems: (1) Altered level of consciousness Status: Acute (2) Atrial fibrillation with RVR Status: Acute (3) CHF (congestive heart failure) Status: Acute (4) CO2 narcosis Status: Acute (5) Elevated bilirubin Status: Acute (6) Lactic acidosis Status: Acute (7) Renal insufficiency Status: Acute (8) SIRS (systemic inflammatory response syndrome) Status: Acute 1. Altered mental status - appears to be resolved 2. atrial fibrillation with RVR - improved but with Ventricular response >100- 110bpm. Add metoprolol when taking oral meds and titrate off esmolol. 3. acute on chronic systolic heart failure - EF 35% by echo. No respiratory distress. On 2L/NC O2 with Spo2 >95%. Up in room with PT without dyspnea. He does continue to have significant lower extremity edema, will check venous duplex and VQ as d dimer is elevated as well. Will continue to hold off on diuresis at this time as he remains in renal failure. 4. hypotension remains on low dose neosynephrine. titrate off as tolerated. 5. Renal failure ?acute on chronic - . mild improvement in Bun/Cr this am. await 24hr urine results. 6. Elevated transaminases - improving. repeat abdominal sono pending. per PCP 7. elevated d dimer - VQ and lower extremity duplex 8. protein malnutrition Subjective up with PT and tolerated well. no complaints of chest pain, dyspnea, lightheadedness or palpitations Objective Vital Signs Date Time Temp Pulse Resp B/P (MAP) Pulse Ox O2 Delivery O2 Flow Rate FiO2 07/30/17 09:03 102 16 107/62 (77) 98 Nasal Cannula 2.5 07/30/17 07:00 97.8 Intake and Output 07/30/17 07:00 Intake Total 3432 ml Output Total 2050 ml Balance 1382 ml Intake Oral 2230 ml IV Total 1202 ml Output Urine Total 2050 ml Heart: Other (IRR, no gallops, clicks or rubs) Extremities: Other (2-3+ edema bilaterally lower extremitites) General: Alert, Cooperative, No acute distress HEENT: Other Neck: No JVD, Other (No HJR) Neuro: Normal speech Psych/Mental Status: Mood NL Review of Relevant I have reviewed the following items carla (where applicable) has been applied. Labs Laboratory Tests Test 07/28/17 09:43 07/28/17 12:25 07/28/17 12:33 07/28/17 13:14 Bedside Hemoglobin 16.3 gm/dL Bedside Hematocrit 48 % Bedside Sodium 142 mmol/L (135-145) Bedside Potassium 5.0 mmol/L (3.5-5.0) Bedside Chloride 105 mmol/L (98-110) Bedside Total CO2 24 mmol/L (23-32) Anion Gap 19 mmol/L (6-14) Bedside Blood Urea Nitrogen 55 mg/dL (8-26) Bedside Creatinine 2.3 mg/dL (0.5-1.4) Glucose Level 129 mg/dL (60-99) Bedside Ionized Calcium (Ree) 1.08 mmol/L (1.13-1.32) Lactic Acid Level 2.9 mmol/L (0.4-2.0) Blood Gas pH 7.36 (7.35-7.46) Blood Gas PCO2 43 mmHg (35-46) Blood Gas PO2 72 mmHg (71-100) Blood Gas HCO3 24 mmol/L (21-28) Arterial Bld O2 Saturation (Calc) 94 % (92-99) FiO2 40 % Urine Collection Type Unknown Urine Color Chen Urine Clarity Turbid Urine pH 5.0 Urine Specific [place] >=1.030 Urine Protein 100 mg/dl (NEG-TRACE) Urine Glucose (UA) Neg mg/dL (NEG) Urine Ketones (Stick) Neg mg/dL (NEG) Urine Blood Mod (NEG) Urine Nitrite Neg (NEG) Urine Bilirubin Neg (NEG) Urine Urobilinogen Dipstick 4 mg/dL (0.2 mg/dL) Urine Leukocyte Esterase Neg (NEG) Urine RBC 11-20 /HPF (0-2) Urine WBC 0 /HPF (0-4) Urine Squamous Epithelial Cells Occ /LPF Urine Bacteria 0 /HPF (0-FEW) Urine Hyaline Casts Mod /HPF Urine Opiates Screen Neg (NEG) Urine Methadone Screen Neg (NEG) Urine Barbiturates Neg (NEG) Urine Phencyclidine Screen Neg (NEG) Urine Amphetamine/Methamphetamine Neg (NEG) Urine Benzodiazepines Screen Neg (NEG) Urine Cocaine Screen Neg (NEG) Urine Cannabinoids Screen Pos (NEG) Urine Ethyl Alcohol Neg (NEG) Test 07/28/17 13:15 07/28/17 14:15 07/28/17 15:25 07/28/17 15:26 Nasal Screen MRSA (PCR) Negative (Negative) Troponin I Quantitative 0.079 ng/mL (0-0.055) Ammonia 37 mcmol/L (11-34) Sodium Level 142 mmol/L (136-145) Potassium Level 5.0 mmol/L (3.5-5.1) Chloride Level 105 mmol/L (98-107) Carbon Dioxide Level 27 mmol/L (21-32) Anion Gap 10 (6-14) Blood Urea Nitrogen 63 mg/dL (8-26) Creatinine 2.3 mg/dL (0.7-1.3) Estimated GFR (Cockcroft-Gault) 27.9 Glucose Level 134 mg/dL (70-99) Calcium Level 8.5 mg/dL (8.5-10.1) Total Bilirubin 1.8 mg/dL (0.2-1.0) Direct Bilirubin 1.2 mg/dL (0.0-0.2) Gamma Glutamyl Transpeptidase 67 U/L (10-85) Aspartate Amino Transf (AST/SGOT) 2171 U/L (15-37) Alanine Aminotransferase (ALT/SGPT) 1815 U/L (16-63) Alkaline Phosphatase 93 U/L (46-116) Creatine Kinase 56 U/L (39-308) Total Protein 7.3 g/dL (6.4-8.2) Albumin 2.9 g/dL (3.4-5.0) Thyroid Stimulating Hormone (TSH) 0.100 uIU/mL (0.358-3.740) Acetaminophen Level < 2.0 mcg/mL (10-30) Acetaminophen Last Dose Date 07/27/17 Acetaminophen Last Dose Time 1700 Test 07/28/17 20:00 07/29/17 05:51 07/29/17 14:12 07/30/17 07:13 D-Dimer ([place]) 8.91 mg/L (0.00-0.50) Troponin I Quantitative 0.090 ng/mL (0-0.055) White Blood Count 11.2 x10^3/uL (4.0-11.0) 9.7 x10^3/uL (4.0-11.0) Red Blood Count 4.19 x10^6/uL (4.30-5.70) 4.17 x10^6/uL (4.30-5.70) Hemoglobin 13.5 g/dL (13.0-17.5) 13.6 g/dL (13.0-17.5) Hematocrit 41.5 % (39.0-53.0) 41.6 % (39.0-53.0) Mean Corpuscular Volume 99 fL (79-100) 100 fL (79-100) Mean Corpuscular Hemoglobin 32 pg (25-35) 33 pg (25-35) Mean Corpuscular Hemoglobin Concent 33 g/dL (31-37) 33 g/dL (31-37) Red Cell Distribution Width 16.6 % (11.5-14.5) 17.0 % (11.5-14.5) Platelet Count 161 x10^3/uL (140-400) 156 x10^3/uL (140-400) Neutrophils (%) (Auto) 89 % (31-73) Lymphocytes (%) (Auto) 4 % (24-48) Monocytes (%) (Auto) 7 % (0-9) Eosinophils (%) (Auto) 0 % (0-3) Basophils (%) (Auto) 0 % (0-3) Neutrophils # (Auto) 10.0 x10^3uL (1.8-7.7) Lymphocytes # (Auto) 0.4 x10^3/uL (1.0-4.8) Monocytes # (Auto) 0.8 x10^3/uL (0.0-1.1) Eosinophils # (Auto) 0.0 x10^3/uL (0.0-0.7) Basophils # (Auto) 0.0 x10^3/uL (0.0-0.2) Sodium Level 147 mmol/L (136-145) 144 mmol/L (136-145) Potassium Level 4.0 mmol/L (3.5-5.1) 3.4 mmol/L (3.5-5.1) Chloride Level 108 mmol/L (98-107) 105 mmol/L (98-107) Carbon Dioxide Level 32 mmol/L (21-32) 31 mmol/L (21-32) Anion Gap 7 (6-14) 8 (6-14) Blood Urea Nitrogen 69 mg/dL (8-26) 56 mg/dL (8-26) Creatinine 2.4 mg/dL (0.7-1.3) 1.9 mg/dL (0.7-1.3) Estimated GFR (Cockcroft-Gault) 26.5 34.7 BUN/Creatinine Ratio 29 (6-20) Glucose Level 116 mg/dL (70-99) 99 mg/dL (70-99) Calcium Level 7.8 mg/dL (8.5-10.1) 7.4 mg/dL (8.5-10.1) Magnesium Level 2.1 mg/dL (1.8-2.4) 1.8 mg/dL (1.8-2.4) Total Bilirubin 1.5 mg/dL (0.2-1.0) Aspartate Amino Transf (AST/SGOT) 1032 U/L (15-37) Alanine Aminotransferase (ALT/SGPT) 1374 U/L (16-63) Alkaline Phosphatase 78 U/L (46-116) Total Protein 6.3 g/dL (6.4-8.2) Albumin 2.4 g/dL (3.4-5.0) Albumin/Globulin Ratio 0.6 (1.0-1.7) Urine Sodium <60 mmol/L (Not Estab.) Urine Sodium 24 Hour Comment mmol/24 hr Urine Potassium 48.6 mmol/L (Not Estab.) Urine Potassium 24 Hour Comment mmol/24 hr Urine Chloride <60 mmol/L (Not Estab.) Urine Chloride 24 Hour Comment mmol/24 hr Microbiology 07/28/17 Blood Culture - Preliminary, Resulted NO GROWTH AFTER 1 DAY Medications Current Medications Metoprolol Tartrate (Lopressor Vial) 5 mg STK-MED ONCE IV ; Start 07/28/17 at 09: 13; Stop 07/28/17 at 09:14; Status DC Metoprolol Tartrate (Lopressor Vial) 5 mg 1X ONCE IV Last administered on at 09:26; Start 07/28/17 at 09:30; Stop 07/28/17 at 09:31; Status DC Digoxin (Lanoxin) 500 mcg 1X ONCE IV Last administered on 07/28/17at 09:51; Start 07/28/17 at 09:30; Stop 07/28/17 at 09:31; Status DC Ceftriaxone Sodium 1 gm/ Sodium Chloride 50 ml @ 100 mls/hr 1X ONCE IV ; Start 07/28/17 at 10:30; Stop 07/28/17 at 10:30; Status DC Ceftriaxone Sodium (Rocephin) 1 gm 1X ONCE IVP Last administered on 07/28/17at 10:46; Start 07/28/17 at 10:30; Stop 07/28/17 at 10:31; Status DC Esmolol HCl 250 ml @ 0 mls/hr 1X ONCE IV ; Start 07/28/17 at 10:45; Stop at 10:52; Status DC Verapamil HCl (Verapamil HCl) 5 mg 1X ONCE IV Last administered on 07/28/17at 11 :22; Start 07/28/17 at 11:15; Stop 07/28/17 at 11:18; Status DC Esmolol HCl 250 ml @ 0 mls/hr 1X ONCE IV Last administered on 07/28/17at 17:15; Start 07/28/17 at 13:30; Stop 07/28/17 at 13:31; Status DC Ceftriaxone Sodium (Rocephin) 1 gm Q24H IVP ; Start 07/29/17 at 10:30; Stop 01/06 at 10:30; Status DC Esmolol HCl 250 ml @ 0 mls/hr CONT PRN IV SEE I/O RECORD Last administered on at 07:25; Start 07/28/17 at 15:45 Albuterol/ Ipratropium (Duoneb) 3 ml RTQID NEB Last administered on 07/30/17at 05:55; Start 07/28/17 at 16:00 Nystatin (Nystop) 1 tisha BID TP Last administered on 07/30/17at 07:23; Start 07/28 at 21:00 Piperacillin Sod/ Tazobactam Sod (Zosyn Per Pharmacy) 1 each PRN DAILY PRN MC SEE COMMENTS Last administered on 07/28/17at 19:18; Start 07/28/17 at 17:00 Vancomycin HCl (Vanco Per Pharmacy) 1 each PRN DAILY PRN MC SEE COMMENTS Last administered on 07/28/17at 19:20; Start 07/28/17 at 17:00 Vancomycin HCl 2 gm/Sodium Chloride 500 ml @ 250 mls/hr 1X ONCE IV Last administered on 07/28/17at 17:14; Start 07/28/17 at 17:30; Stop 07/28/17 at 19:29; Status DC Furosemide (Lasix) 80 mg 1X ONCE IVP ; Start 07/28/17 at 17:15; Stop 07/28/17 at 17:15; Status DC Furosemide (Lasix) 80 mg 1X ONCE IVP Last administered on 07/28/17at 18:32; Start 07/28/17 at 17:15; Stop 07/28/17 at 17:16; Status DC Ondansetron HCl (Zofran) 4 mg PRN Q8HRS PRN IV NAUSEA/VOMITING; Start 07/28/17 at 19:00 Piperacillin Sod/ Tazobactam Sod 3.375 gm/Sodium Chloride 50 ml @ 100 mls/hr Q6H IV Last administered on 07/30/17at 07:23; Start 07/28/17 at 20:00 Vancomycin HCl 1.75 gm/Sodium Chloride 500 ml @ 250 mls/hr Q24H IV Last administered on 07/29/17at 17:35; Start 07/29/17 at 17:00 Vancomycin HCl (Vancomycin Trough Level) 1 each 1X ONCE MC ; Start 07/30/17 at 16:30; Stop 07/30/17 at 16:31 Lactobacillus Rhamnosus (Culturelle) 1 cap BID PO Last administered on at 07:23; Start 07/28/17 at 21:00 Enoxaparin Sodium (Lovenox) 40 mg Q24H SQ Last administered on 07/30/17at 07:24 ; Start 07/29/17 at 09:00 Phenylephrine HCl 20 mg/Sodium Chloride 252 ml @ 22.68 mls/ hr CONT PRN IV SEE I/O RECORD Last administered on 07/30/17at 01:19; Start 07/29/17 at 10:00 Albumin Human 50 ml @ 50 mls/hr 1X ONCE IV Last administered on 07/29/17at 10: 26; Start 07/29/17 at 10:30; Stop 07/29/17 at 11:29; Status DC Vitals/I & O Vital Sign - Last 24 Hours 07/29/17 07/29/17 07/29/17 07/29/17 09:53 11:00 11:25 11:28 Temp 98.4 Pulse 130 119 Resp 18 18 B/P (MAP) 94/52 (66) 105/47 (66) Pulse Ox 95 95 94 O2 Delivery Nasal Cannula Nasal Cannula Nasal Cannula Nasal Cannula O2 Flow Rate 2.5 3.0 2.5 2.5 07/29/17 07/29/17 07/29/17 07/29/17 12:23 13:05 14:15 15:20 Temp 97.8 Pulse 112 122 121 101 Resp 18 18 16 20 B/P (MAP) 116/66 (83) 110/62 (78) 77/59 (65) 103/66 (78) Pulse Ox 92 95 92 99 O2 Delivery Nasal Cannula Nasal Cannula Nasal Cannula Nasal Cannula O2 Flow Rate 2.5 2.5 2.5 2.5 07/29/17 07/29/17 07/29/17 07/29/17 16:00 16:02 16:22 17:02 Pulse 123 125 Resp 20 20 B/P (MAP) 99/59 (72) 104/61 (75) Pulse Ox 96 96 96 O2 Delivery Nasal Cannula Nasal Cannula Nasal Cannula Nasal Cannula O2 Flow Rate 3.0 2.5 2.0 2.5 07/29/17 07/29/17 07/29/17 07/29/17 18:26 18:44 19:40 19:53 Pulse 110 128 122 Resp 20 20 14 B/P (MAP) 98/62 (74) 106/57 (73) 117/63 (81) Pulse Ox 98 98 98 O2 Delivery Nasal Cannula Nasal Cannula Nasal Cannula Nasal Cannula O2 Flow Rate 2.5 2.5 3.0 2.5 07/29/17 07/29/17 07/29/17 07/29/17 20:05 21:00 22:15 23:15 Temp 98.3 Pulse 125 114 74 Resp 14 13 15 B/P (MAP) 99/59 (72) 111/62 (78) 98/72 (81) Pulse Ox 98 94 95 94 O2 Delivery Nasal Cannula Nasal Cannula Nasal Cannula Nasal Cannula O2 Flow Rate 2.0 2.5 2.5 2.5 07/29/17 07/30/17 07/30/17 07/30/17 23:59 00:01 01:14 03:01 Pulse 98 106 109 Resp 16 16 16 B/P (MAP) 109/72 (84) 134/78 (96) 99/65 (76) Pulse Ox 97 97 95 O2 Delivery Nasal Cannula Nasal Cannula Nasal Cannula Nasal Cannula O2 Flow Rate 3.0 2.5 2.5 2.5 07/30/17 07/30/17 07/30/17 07/30/17 04:00 04:00 05:00 05:55 Pulse 104 101 Resp 16 16 B/P (MAP) 100/77 (85) 103/64 (77) Pulse Ox 94 95 98 O2 Delivery Nasal Cannula Nasal Cannula Nasal Cannula Nasal Cannula O2 Flow Rate 2.5 3.0 2.5 2.0 07/30/17 07/30/17 07/30/17 07/30/17 06:03 07:00 07:16 07:45 Temp 97.8 Pulse 103 102 101 108 Resp 13 17 17 19 B/P (MAP) 112/71 (85) 110/64 (79) 85/55 (65) 116/72 (87) Pulse Ox 95 96 96 97 O2 Delivery Nasal Cannula Nasal Cannula Nasal Cannula Nasal Cannula O2 Flow Rate 2.5 2.5 2.5 2.5 07/30/17 07/30/17 07/30/17 07/30/17 08:00 08:00 09:00 09:03 Pulse 106 101 102 Resp 18 18 16 B/P (MAP) 116/72 (87) 100/73 (82) 107/62 (77) Pulse Ox 97 94 98 O2 Delivery Nasal Cannula Nasal Cannula Nasal Cannula Nasal Cannula O2 Flow Rate 2.5 3.0 2.5 2.5 Intake and Output 07/29/17 07/29/17 07/30/17 15:00 23:00 07:00 Intake Total 650 ml 1330 ml 1452 ml Output Total 725 ml 575 ml 750 ml Balance -75 ml 755 ml 702 ml DILMA MONAE APRN July 30, 2017 09:39
[2017-07-30] MEDS: POTASSIUM CHLORIDE 8 MEQ TABLET.ER. PO SCH ×2 (10:00→20:37)
--- NOTE | 2017-07-30 11:19 | RAD ---
EXAM: Chest, single view. HISTORY: PICC line placement. COMPARISON: 07/29/2017 FINDINGS: A frontal view of the chest obtained. There is a right PICC with the tip in the superior vena cava. There is mild diffuse interstitial opacity due to congestion. No pleural effusion or pneumothorax is seen. The heart is normal in size. There are calcified granulomas. IMPRESSION: 1. Right PICC with the tip in the superior vena cava. 2. Suspected stable pulmonary congestion. Electronically signed by: Stacey Kc MD (07/30/2017 11:16 AM) [id number]
[2017-07-30] MEDS: METOPROLOL TART IMMED RELEASE 25 MG TABLET PO SCH ×3 (12:00→23:46)
--- NOTE | 2017-07-30 14:07 | RAD ---
Ventilation/perfusion lung scan, 07/30/2017: HISTORY: Dyspnea, elevated d-dimer, respiratory failure The ventilation study was performed utilizing 22 mCi of xenon-133. There is heterogeneous activity in the lungs, worse on the right. Perfusion imaging was performed utilizing 6.5 mCi of technetium 99m MAA. A similar pattern of activity is present in the lungs on the anterior and posterior projections. The oblique and right lateral views demonstrate decreased activity along the fissure and in the right middle lobe. The left lung perfusion is unremarkable. IMPRESSION: Right lobe perfusion abnormalities suggesting an intermediate probability of pulmonary emboli. CTA of the chest may be useful for further evaluation. Electronically signed by: Ace Vyas MD (07/30/2017 2:04 PM) [facility]
[2017-07-30] MEDS ORDERED: POTASSIUM CHLORIDE 10MEQ 50 ML IV ONE (15:00)
[2017-07-30] MEDS ORDERED: HEPARIN 25,000UTS/500ML PREMIX 500 ML IV PRN (15:00)
[2017-07-30] MEDS: HEPARIN 25,000UTS/500ML PREMIX 500 ML IV PRN (16:04)
[2017-07-30 16:33] LABS: VANC TR 14.7 mcg/mL (10.0-20.0)
[2017-07-30] MEDS: VANCOMYCIN 1.75 GM in IV NORMAL SALINE 500ML 500 ML IV SCH (16:53)
[2017-07-30] MEDS: VANCOMYCIN PER PHARMACY MC PRN (16:58)
[2017-07-30] MEDS ORDERED: ENOXAPARIN ** NOTE DOSE ** SYRINGE SQ SCH (21:00)
[2017-07-30] MEDS ORDERED: HEPARIN PF for SUB-Q USE 5,000 UNIT/0.5 ML VIAL. SQ SCH (22:00)
[2017-07-31] VITALS (24 sets, daily range): BP systolic 82–119; BP diastolic 56–83
[2017-07-31] MEDS: ESMOLOL 2500MG/250ML PREMIX 250 ML IV PRN ×5 (00:12→16:33)
[2017-07-31] MEDS: PIPERACILLIN/TAZOBACTAM 3.375 GM in IV NORMAL SALINE 50ML 50 ML IV SCH ×4 (01:44→21:27)
[2017-07-31] MEDS: PHENYLEPHRINE INJ 20 MG in IV NORMAL SALINE 250ML 250 ML IV PRN ×3 (02:51→23:19)
[2017-07-31] MEDS: METOPROLOL TART IMMED RELEASE 25 MG TABLET PO SCH ×3 (05:32→17:42)
[2017-07-31] MEDS: IPRATRPIUM/ALBUTEROL 0.5/2.5MG 3 ML NEBU. NEB SCH ×4 (05:42→21:00)
[2017-07-31 05:46] LABS: BASO % 0 % (0-3); EOS # 0.1 x10^3/uL (0.0-0.7); EOS % 1 % (0-3); HEMATOCRIT 42.5 % (39.0-53.0); HEMOGLOBIN 13.9 g/dL (13.0-17.5); LYMPH # 0.6 x10^3/uL (1.0-4.8); LYMPH % 6 % (24-48); MEAN CORPUSCULAR HEMOGLOBIN 33 pg (25-35); MEAN CORPUSCULAR HGB CONC 33 g/dL (31-37); MEAN CORPUSCULAR VOLUME 100 fL (79-100); MONO % 10 % (0-9); NEUT # 8.2 x10^3uL (1.8-7.7); NEUT % 82 % (31-73); PLATELET COUNT 159 x10^3/uL (140-400); RED BLOOD COUNT 4.27 x10^6/uL (4.30-5.70); RED CELL DISTRIBUTION WIDTH 17.6 % (11.5-14.5)
[2017-07-31 05:54] LABS: CALCIUM 7.6 mg/dL (8.5-10.1); CREATININE 1.5 mg/dL (0.7-1.3); GFR 45.6; POTASSIUM 3.8 mmol/L (3.5-5.1)
--- NOTE | 2017-07-31 06:22 | PN ---
DATE: SUBJECTIVE: The patient denies any new medical or neurological complaints. OBJECTIVE: GENERAL: Well-developed, well-nourished male, not in acute distress. VITAL SIGNS: Blood pressure 107/62, respiratory rate 16, pulse is 102 irregular, temperature is 97.8, oxygen saturation is 98 on 2.5 liters per minute by nasal cannula. HEENT: Normocephalic, atraumatic, otherwise unremarkable. NECK: Supple. Negative for carotid bruit, lymphadenopathy or thyromegaly. LUNGS: With diminished breath sounds bilaterally. CARDIOVASCULAR: Irregular/irregular rhythm. Normal S1, S2. There is no murmur. ABDOMEN: Soft. Bowel sounds positive. EXTREMITIES: 3+ positive pitting edema with weak peripheral pulses in the feet. NEUROLOGICAL: Mental Status: The patient is more alert and oriented to place and person. Speech is more fluent, but slow. There is no language dysfunction. Judgment and abstracting thinking is fair. The patient denies hallucination or delusion. Cranial nerves are unremarkable except for a mild right facial asymmetry, probably due to previous stroke. Motor examination: The patient moves his upper and lower extremities more and he is probably back to a baseline from previous stroke. Sensory examination: Normal pinprick and light touch senses throughout. Deep tendon reflexes were hypoactive. There was positive Babinski on the right side. LABORATORY DATA: CBC revealed white blood cells of 9700; hemoglobin 13.6; hematocrit of 41.6; platelet count 156,000. Chemistry revealed sodium of 144, potassium 3.4, chloride 105, CO2 of 31, BUN 53, creatinine 1.9, glucose is 99 and calcium 7.4. Urinalysis is negative for urinary tract infections. Urine drug screen is positive for THC. Nasal screen for MRSA is negative. Abdomen ultrasound revealed a 4.4 cm abdominal aortic dilatation with cholelithiasis and hepatic steatosis. Echocardiogram revealed severely impaired ejection fraction at 35% with global hypokinesis of the left ventricle. IMPRESSION: 1. Acute encephalopathy -- improved, probably metabolic versus infectious. 2. 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 3. Multiple medical problems include atrial fibrillation, congestive heart failure, abnormal echocardiogram consistent with severely impaired ejection fraction at 35 with a left ventricle global hypokinesis. 4. Renal failure with elevated liver enzymes and cholelithiasis. RECOMMENDATIONS: 1. The patient is neurologically stable with some improvement of mental status. The patient does not need any further neurological imaging at this time. 2. Continue with current management initiated by Dr. Gillette and Cardiology service. M Barbara ISRAEL MD DR: JOLENE/saw JOB#: [id number] / [id number]
[2017-07-31] MEDS: NYSTATIN TOPICAL POWDER 15GM BOTTLE. TP SCH ×3 (10:50→21:28)
[2017-07-31] MEDS: LACTOBACILLUS RHAMNOSUS GG 1 CAPSULE. PO SCH ×2 (10:50→21:27)
[2017-07-31] MEDS: POTASSIUM CHLORIDE 8 MEQ TABLET.ER. PO SCH ×2 (10:55→21:28)
[2017-07-31] MEDS: HEPARIN 25,000UTS/500ML PREMIX 500 ML IV PRN (10:55)
--- NOTE | 2017-07-31 11:25 | RAD ---
Ultrasound of the abdomen complete. HISTORY: Elevated liver enzymes Ultrasound was used to evaluate the abdomen. Pancreas was poorly seen, portions of the mid pancreas were normal. There is an abdominal aortic aneurysm measuring 4.5 x 3.9 cm. There is a gallstone in the gallbladder. Gallbladder wall is marginally thickened 3 mm. Gallbladder wall was marginally thickened. The vena cava was unremarkable. Right kidney was 10.9 cm in length without a mass or hydronephrosis. There is a calculus in the lower right kidney. There is normal antegrade flow in the portal vein with Doppler. A focal liver lesion is not identified. Liver is within normal limits in size. Common duct was normal measuring 5 mm. Left kidney is 12 cm in length without hydronephrosis. Spleen was not optimally seen but was not enlarged. IMPRESSION: 1. Cholelithiasis. 2. Common duct within normal limits. 3. Liver within normal limits in size without a focal lesion. 4. Right renal calculus. 5. Poor visualization of the pancreas. 6. 4.5 cm abdominal aortic aneurysm. Electronically signed by: Zion Cardenas MD (07/31/2017 11:22 AM) [facility]
--- NOTE | 2017-07-31 11:38 | PDOC ---
PROGRESS NOTES Diagnosis Problem Problems Medical Problems: (1) Altered level of consciousness Status: Acute (2) Atrial fibrillation with RVR Status: Acute (3) CHF (congestive heart failure) Status: Acute (4) CO2 narcosis Status: Acute (5) Elevated bilirubin Status: Acute (6) Lactic acidosis Status: Acute (7) Renal insufficiency Status: Acute (8) SIRS (systemic inflammatory response syndrome) Status: Acute Assessment 1. Altered mental status -improved since admission 2. atrial fibrillation with RVR -heart rate better since admission. Continue to titrate pressors and esmolol down as tolerated and continue metoprolol orally for rate control. 3. acute on chronic systolic heart failure - EF 35% by echo. Better compensated since admission. We will consider outpatient ischemic evaluation. Continue current medical regimen. 4. hypotension remains on low dose neosynephrine. titrate off as tolerated. 5. Acute on chronic renal insufficiency - workup and treat per IM Subjective No new complaints Objective Vital Signs Date Time Temp Pulse Resp B/P (MAP) Pulse Ox O2 Delivery O2 Flow Rate FiO2 07/31/17 11:19 93 Room Air 07/31/17 10:43 112 20 100/67 (78) 97.0 07/30/17 19:40 97.7 Intake and Output 07/31/17 07:00 Intake Total 2140 ml Output Total 2255 ml Balance -115 ml Intake Oral 1340 ml IV Total 800 ml Output Urine Total 2255 ml # Voids 2 # Bowel Movements 2 Abdomen: Soft, No tenderness Heart: Other (heart rate is irregular) Extremities: Other (1+ edema) General: Alert, No acute distress Lungs: Clear to auscultation Neck: Supple Psych/Mental Status: Mood NL Review of Relevant I have reviewed the following items carla (where applicable) has been applied. Labs Laboratory Tests Test 07/29/17 14:12 07/30/17 07:13 07/30/17 16:00 07/30/17 22:15 Urine Sodium <60 mmol/L (Not Estab.) Urine Sodium 24 Hour Comment mmol/24 hr Urine Potassium 48.6 mmol/L (Not Estab.) Urine Potassium 24 Hour Comment mmol/24 hr Urine Chloride <60 mmol/L (Not Estab.) Urine Chloride 24 Hour Comment mmol/24 hr White Blood Count 9.7 x10^3/uL (4.0-11.0) Red Blood Count 4.17 x10^6/uL (4.30-5.70) Hemoglobin 13.6 g/dL (13.0-17.5) Hematocrit 41.6 % (39.0-53.0) Mean Corpuscular Volume 100 fL (79-100) Mean Corpuscular Hemoglobin 33 pg (25-35) Mean Corpuscular Hemoglobin Concent 33 g/dL (31-37) Red Cell Distribution Width 17.0 % (11.5-14.5) Platelet Count 156 x10^3/uL (140-400) Sodium Level 144 mmol/L (136-145) Potassium Level 3.4 mmol/L (3.5-5.1) Chloride Level 105 mmol/L (98-107) Carbon Dioxide Level 31 mmol/L (21-32) Anion Gap 8 (6-14) Blood Urea Nitrogen 56 mg/dL (8-26) Creatinine 1.9 mg/dL (0.7-1.3) Estimated GFR (Cockcroft-Gault) 34.7 Glucose Level 99 mg/dL (70-99) Calcium Level 7.4 mg/dL (8.5-10.1) Magnesium Level 1.8 mg/dL (1.8-2.4) Activated Partial Thromboplast Time 28 SEC (23-33) 45 SEC (23-33) Vancomycin Level Trough 14.7 mcg/mL (10.0-20.0) Vancomycin Last Dose Date 07/29/17 Vancomycin Last Dose Time 1700 Test 07/31/17 05:20 White Blood Count 10.0 x10^3/uL (4.0-11.0) Red Blood Count 4.27 x10^6/uL (4.30-5.70) Hemoglobin 13.9 g/dL (13.0-17.5) Hematocrit 42.5 % (39.0-53.0) Mean Corpuscular Volume 100 fL (79-100) Mean Corpuscular Hemoglobin 33 pg (25-35) Mean Corpuscular Hemoglobin Concent 33 g/dL (31-37) Red Cell Distribution Width 17.6 % (11.5-14.5) Platelet Count 159 x10^3/uL (140-400) Neutrophils (%) (Auto) 82 % (31-73) Lymphocytes (%) (Auto) 6 % (24-48) Monocytes (%) (Auto) 10 % (0-9) Eosinophils (%) (Auto) 1 % (0-3) Basophils (%) (Auto) 0 % (0-3) Neutrophils # (Auto) 8.2 x10^3uL (1.8-7.7) Lymphocytes # (Auto) 0.6 x10^3/uL (1.0-4.8) Monocytes # (Auto) 1.0 x10^3/uL (0.0-1.1) Eosinophils # (Auto) 0.1 x10^3/uL (0.0-0.7) Basophils # (Auto) 0.0 x10^3/uL (0.0-0.2) Activated Partial Thromboplast Time 57 SEC (23-33) Sodium Level 140 mmol/L (136-145) Potassium Level 3.8 mmol/L (3.5-5.1) Chloride Level 103 mmol/L (98-107) Carbon Dioxide Level 28 mmol/L (21-32) Anion Gap 9 (6-14) Blood Urea Nitrogen 41 mg/dL (8-26) Creatinine 1.5 mg/dL (0.7-1.3) Estimated GFR (Cockcroft-Gault) 45.6 Glucose Level 117 mg/dL (70-99) Calcium Level 7.6 mg/dL (8.5-10.1) Microbiology 07/28/17 Blood Culture - Preliminary, Resulted NO GROWTH AFTER 3 DAYS Medications Current Medications Metoprolol Tartrate (Lopressor Vial) 5 mg STK-MED ONCE IV ; Start 07/28/17 at 09: 13; Stop 07/28/17 at 09:14; Status DC Metoprolol Tartrate (Lopressor Vial) 5 mg 1X ONCE IV Last administered on at 09:26; Start 07/28/17 at 09:30; Stop 07/28/17 at 09:31; Status DC Digoxin (Lanoxin) 500 mcg 1X ONCE IV Last administered on 07/28/17at 09:51; Start 07/28/17 at 09:30; Stop 07/28/17 at 09:31; Status DC Ceftriaxone Sodium 1 gm/ Sodium Chloride 50 ml @ 100 mls/hr 1X ONCE IV ; Start 07/28/17 at 10:30; Stop 07/28/17 at 10:30; Status DC Ceftriaxone Sodium (Rocephin) 1 gm 1X ONCE IVP Last administered on 07/28/17at 10:46; Start 07/28/17 at 10:30; Stop 07/28/17 at 10:31; Status DC Esmolol HCl 250 ml @ 0 mls/hr 1X ONCE IV ; Start 07/28/17 at 10:45; Stop at 10:52; Status DC Verapamil HCl (Verapamil HCl) 5 mg 1X ONCE IV Last administered on 07/28/17at 11 :22; Start 07/28/17 at 11:15; Stop 07/28/17 at 11:18; Status DC Esmolol HCl 250 ml @ 0 mls/hr 1X ONCE IV Last administered on 07/28/17at 17:15; Start 07/28/17 at 13:30; Stop 07/28/17 at 13:31; Status DC Ceftriaxone Sodium (Rocephin) 1 gm Q24H IVP ; Start 07/29/17 at 10:30; Stop 01/06 at 10:30; Status DC Esmolol HCl 250 ml @ 0 mls/hr CONT PRN IV SEE I/O RECORD Last administered on at 08:07; Start 07/28/17 at 15:45 Albuterol/ Ipratropium (Duoneb) 3 ml RTQID NEB Last administered on 07/31/17at 11:19; Start 07/28/17 at 16:00 Nystatin (Nystop) 1 tisha BID TP Last administered on 07/31/17at 10:50; Start 07/28 at 21:00 Piperacillin Sod/ Tazobactam Sod (Zosyn Per Pharmacy) 1 each PRN DAILY PRN MC SEE COMMENTS Last administered on 07/28/17at 19:18; Start 07/28/17 at 17:00 Vancomycin HCl (Vanco Per Pharmacy) 1 each PRN DAILY PRN MC SEE COMMENTS Last administered on 07/30/17at 16:58; Start 07/28/17 at 17:00 Vancomycin HCl 2 gm/Sodium Chloride 500 ml @ 250 mls/hr 1X ONCE IV Last administered on 07/28/17at 17:14; Start 07/28/17 at 17:30; Stop 07/28/17 at 19:29; Status DC Furosemide (Lasix) 80 mg 1X ONCE IVP ; Start 07/28/17 at 17:15; Stop 07/28/17 at 17:15; Status DC Furosemide (Lasix) 80 mg 1X ONCE IVP Last administered on 07/28/17at 18:32; Start 07/28/17 at 17:15; Stop 07/28/17 at 17:16; Status DC Ondansetron HCl (Zofran) 4 mg PRN Q8HRS PRN IV NAUSEA/VOMITING; Start 07/28/17 at 19:00 Piperacillin Sod/ Tazobactam Sod 3.375 gm/Sodium Chloride 50 ml @ 100 mls/hr Q6H IV Last administered on 07/31/17at 08:08; Start 07/28/17 at 20:00 Vancomycin HCl 1.75 gm/Sodium Chloride 500 ml @ 250 mls/hr Q24H IV Last administered on 07/30/17at 16:53; Start 07/29/17 at 17:00 Vancomycin HCl (Vancomycin Trough Level) 1 each 1X ONCE MC Last administered on 07/30/17at 16:00; Start 07/30/17 at 16:30; Stop 07/30/17 at 16:31; Status DC Lactobacillus Rhamnosus (Culturelle) 1 cap BID PO Last administered on at 10:50; Start 07/28/17 at 21:00 Enoxaparin Sodium (Lovenox) 40 mg Q24H SQ Last administered on 07/30/17at 07:24 ; Start 07/29/17 at 09:00; Stop 07/30/17 at 10:16; Status DC Phenylephrine HCl 20 mg/Sodium Chloride 252 ml @ 22.68 mls/ hr CONT PRN IV SEE I/O RECORD Last administered on 07/31/17at 02:51; Start 07/29/17 at 10:00 Albumin Human 50 ml @ 50 mls/hr 1X ONCE IV Last administered on 07/29/17at 10: 26; Start 07/29/17 at 10:30; Stop 07/29/17 at 11:29; Status DC Metoprolol Tartrate (Lopressor) 25 mg Q6HRS PO Last administered on 07/31/17at 05:32; Start 07/30/17 at 12:00 Potassium Chloride (Klor-Con 8) 8 meq BID PO Last administered on 07/31/17at 10: 55; Start 07/30/17 at 10:00 Enoxaparin Sodium (Lovenox 120mg Syringe) 120 mg Q12HR SQ ; Start 07/30/17 at 21 :00; Stop 07/30/17 at 21:00; Status DC Heparin Sodium (Porcine) (Heparin Sq) 5,000 unit Q8HRS SQ ; Start 07/30/17 at 22 :00; Status Cancel Potassium Chloride 50 ml @ 50 mls/hr 1X ONCE IV Last administered on at 15:55; Start 07/30/17 at 15:00; Stop 07/30/17 at 15:59; Status DC Heparin Sodium/ Dextrose 500 ml @ 0 mls/hr CONT PRN IV SEE I/O RECORD; Start at 15:00; Stop 07/30/17 at 15:09; Status DC Heparin Sodium/ Dextrose 500 ml @ 0 mls/hr CONT PRN IV SEE I/O RECORD Last administered on 07/31/17at 10:55; Start 07/30/17 at 15:15 Vancomycin HCl (Vancomycin Trough Level) 1 each 1X ONCE MC ; Start 08/04/17 at 16:30; Stop 08/04/17 at 16:31 Vitals/I & O Vital Sign - Last 24 Hours 07/30/17 07/30/17 07/30/17 07/30/17 12:00 12:22 12:31 13:01 Pulse 109 97 Resp 16 24 B/P (MAP) 105/60 (75) 93/64 (74) Pulse Ox 97 100 97 O2 Delivery Nasal Cannula Nasal Cannula Nasal Cannula Nasal Cannula O2 Flow Rate 1.0 2.0 2.0 2.0 07/30/17 07/30/17 07/30/17 07/30/17 14:00 15:00 16:00 16:11 Pulse 99 97 Resp 20 20 B/P (MAP) 92/63 (73) 92/67 (75) Pulse Ox 97 96 96 O2 Delivery Nasal Cannula Nasal Cannula Room Air Room Air O2 Flow Rate 2.0 2.0 0.0 07/30/17 07/30/17 07/30/17 07/30/17 16:37 17:00 18:00 18:09 Temp 98.1 Pulse 96 117 107 117 Resp 20 20 20 B/P (MAP) 95/68 (77) 126/64 (84) 105/54 (71) 126/64 Pulse Ox 96 94 94 O2 Delivery Nasal Cannula Room Air Room Air O2 Flow Rate 2.0 07/30/17 07/30/17 07/30/17 07/30/17 19:40 19:50 20:30 21:00 Temp 97.7 Pulse 110 103 Resp 17 18 B/P (MAP) 105/54 (71) 117/85 (96) Pulse Ox 93 94 95 O2 Delivery Room Air Room Air Room Air Room Air O2 Flow Rate 1.0 07/30/17 07/30/17 07/30/17 07/30/17 22:00 23:00 23:19 23:30 Pulse 112 128 118 110 Resp 18 20 18 B/P (MAP) 111/69 (83) 73/58 (63) 95/74 (81) 98/64 (75) Pulse Ox 95 95 93 O2 Delivery Room Air Room Air Room Air 07/30/17 07/30/17 07/31/17 07/31/17 23:46 23:55 00:00 01:00 Pulse 110 118 110 Resp 18 20 B/P (MAP) 98/64 101/65 (77) 103/67 (79) Pulse Ox 94 93 O2 Delivery Room Air Room Air Room Air 07/31/17 07/31/17 07/31/17 07/31/17 02:00 03:00 03:52 04:00 Pulse 103 99 106 Resp 18 20 18 B/P (MAP) 94/70 (78) 116/83 (94) 106/78 (87) Pulse Ox 96 95 95 O2 Delivery Room Air Room Air Room Air Room Air 07/31/17 07/31/17 07/31/17 07/31/17 05:00 05:32 05:44 06:00 Pulse 102 102 112 Resp 20 20 B/P (MAP) 101/74 (83) 101/74 110/75 (87) Pulse Ox 96 97 93 O2 Delivery Room Air Room Air Room Air 07/31/17 07/31/17 07/31/17 07/31/17 07:00 07:57 08:00 09:07 Pulse 107 101 99 Resp 20 20 20 B/P (MAP) 110/79 (89) 105/73 (84) 111/56 (74) Pulse Ox 94 95 96 O2 Delivery Room Air Room Air Room Air Room Air 07/31/17 07/31/17 10:43 11:19 Pulse 112 Resp 20 B/P (MAP) 100/67 (78) Pulse Ox 96 93 O2 Delivery Room Air Room Air O2 Flow Rate 97.0 Intake and Output 07/30/17 07/30/17 07/31/17 15:00 23:00 07:00 Intake Total 480 ml 1310 ml 350 ml Output Total 930 ml 700 ml 625 ml Balance -450 ml 610 ml -275 ml RICKIE MCCULLOUGH MD July 31, 2017 11:38
[2017-07-31 17:17] LABS: ALBUMIN 2.4 g/dL (3.4-5.0); DIRECT BILIRUBIN 0.9 mg/dL (0.0-0.2); TOTAL BILIRUBIN 1.8 mg/dL (0.2-1.0); TOTAL PROTEIN 6.3 g/dL (6.4-8.2)
[2017-07-31] MEDS: VANCOMYCIN 1.75 GM in IV NORMAL SALINE 500ML 500 ML IV SCH (17:19)
[2017-08-01] VITALS (21 sets, daily range): BP systolic 74–126; BP diastolic 53–98
--- NOTE | 2017-08-01 00:32 | PN ---
DATE: 07/31/2017 SUBJECTIVE: The patient denies any new medical or neurological complaints. He continues to be confused and disoriented. OBJECTIVE: GENERAL: Obese white male, not in acute distress. VITAL SIGNS: Blood pressure 111/56, respiratory rate 20, pulse is 99 and regular, temperature afebrile, oxygen saturation 96% on room air. HEENT: Normocephalic, atraumatic, otherwise unremarkable. NECK: Supple. Negative for carotid bruit, lymphadenopathy, or thyromegaly. LUNGS: With diminished breath sound. CARDIOVASCULAR: Regular rhythm, normal S1-S2. ABDOMEN: Soft. Bowel sounds positive. EXTREMITIES: 3+ pitting edema bilaterally. NEUROLOGIC: Mental Status: The patient is awake, but disoriented this morning. He follows 1-step commands. Speech is somewhat fluent. There is no language dysfunction. Memory, judgment, and abstracting thinkings are fair. The patient denies hallucination or delusion. Cranial nerves are intact except for mild right facial asymmetry with hearing loss bilaterally. Motor Examination: No focal muscle bulk was seen. The tone is normal. The strength is 4/5 in the right upper and lower extremities. Sensory examination revealed diminished pinprick and light touch senses over the right upper and lower extremities. Deep tendon reflexes were symmetric and hypoactive with absent Achilles responses. Gait not tested. LABORATORY DATA: CBC revealed white blood cells of 10,000, hemoglobin 13.9, hematocrit 42.5, platelet count 159,000. Chemistry revealed sodium of 140, potassium 3.8, chloride 103, CO2 28. BUN 41, creatinine 1.5, glucose 170, calcium 7.6. Liver enzymes are elevated. IMPRESSION: 1. Acute encephalopathy with some improvement. 2. Stable neurological examination. 3. Multiple medical problems including atrial fibrillations, congestive heart failure, abnormal echocardiogram with impaired ejection fraction at 35 with a left ventricular global hypokinesis. 4. Renal insufficiency/renal failure. 5. Elevated liver enzymes. RECOMMENDATIONS: Await for Doppler study of the lower extremities. Otherwise, continue with current management initiated by Dr. Gillette and Cardiology. The patient is neurologically stable. M Barbara ISRAEL MD DR: JOLENE/saw JOB#: [id number] / [id number]
[2017-08-01] MEDS: METOPROLOL TART IMMED RELEASE 25 MG TABLET PO SCH ×4 (01:09→17:49)
[2017-08-01] MEDS: PIPERACILLIN/TAZOBACTAM 3.375 GM in IV NORMAL SALINE 50ML 50 ML IV SCH ×4 (01:55→20:36)
[2017-08-01 05:49] LABS: BASO % 0 % (0-3); EOS # 0.2 x10^3/uL (0.0-0.7); EOS % 3 % (0-3); HEMOGLOBIN 13.8 g/dL (13.0-17.5); LYMPH % 13 % (24-48); MEAN CORPUSCULAR HEMOGLOBIN 32 pg (25-35); MEAN CORPUSCULAR HGB CONC 32 g/dL (31-37); MEAN CORPUSCULAR VOLUME 100 fL (79-100); MONO # 1.1 x10^3/uL (0.0-1.1); MONO % 14 % (0-9); NEUT # 5.7 x10^3uL (1.8-7.7); NEUT % 71 % (31-73); PLATELET COUNT 143 x10^3/uL (140-400); RED BLOOD COUNT 4.31 x10^6/uL (4.30-5.70); RED CELL DISTRIBUTION WIDTH 17.3 % (11.5-14.5)
[2017-08-01] MEDS: IPRATRPIUM/ALBUTEROL 0.5/2.5MG 3 ML NEBU. NEB SCH ×4 (05:58→20:28)
[2017-08-01 06:04] LABS: ALBUMIN 2.3 g/dL (3.4-5.0); ALBUMIN/GLOBULIN RATIO 0.6 (1.0-1.7); CALCIUM 7.8 mg/dL (8.5-10.1); CREATININE 1.4 mg/dL (0.7-1.3); GFR 49.4; POTASSIUM 3.7 mmol/L (3.5-5.1); TOTAL BILIRUBIN 1.4 mg/dL (0.2-1.0); TOTAL PROTEIN 6.2 g/dL (6.4-8.2)
[2017-08-01] MEDS: HEPARIN 25,000UTS/500ML PREMIX 500 ML IV PRN (06:12)
[2017-08-01] MEDS: PIP/TAZO PER PHARMACY MC PRN (07:57)
[2017-08-01] MEDS: VANCOMYCIN PER PHARMACY MC PRN (07:59)
[2017-08-01] MEDS: LACTOBACILLUS RHAMNOSUS GG 1 CAPSULE. PO SCH ×2 (08:53→20:36)
[2017-08-01] MEDS: POTASSIUM CHLORIDE 8 MEQ TABLET.ER. PO SCH ×2 (08:54→20:36)
[2017-08-01] MEDS: NYSTATIN TOPICAL POWDER 15GM BOTTLE. TP SCH (08:55)
--- NOTE | 2017-08-01 12:27 | PN ---
DATE: 08/01/2017 SUBJECTIVE: The patient is resting comfortably. He seems to be a little better. He is off the esmolol, but still on the nifedipine drip to maintain blood pressure and perfusion. Blood pressure 110/70, respiratory rate 16, pulse 95, afebrile. His blood pressure did drop into the 70s during the night Cardiology put him on the nifedipine drip. The patient is resting fairly comfortably. He is still receiving IV antibiotic therapy of vancomycin and Zosyn. Blood cultures did not show anything in particular. D-dimer was of course elevated and his pulmonary perfusion imaging because of renal function showed an intermediate probability of pulmonary emboli. The patient's ultrasound of the liver showed cholelithiasis, 4.5 cm abdominal aortic aneurysm. The patient otherwise continues to be monitored. He is more alert. Lungs are diminished, but clear. CVR exam, irregularly irregular rhythm. Abdomen is soft. No tenderness per se. Extremities, no clubbing, cyanosis, with +2-3 pitting edema noted. We will continue on IV antibiotic therapy, nifedipine drip, monitor his pulmonary embolus, and make further evaluation on him as indicated. IMPRESSION: Acute encephalopathy, probably infectious, chronic atrial fibrillation, acute congestive heart failure, acute on top of chronic diastolic heart failure, abnormal echo consistent with severe ejection fraction of 35%, chronic kidney disease 3, cholelithiasis, elevated liver enzymes, sepsis, acute renal failure, abnormal liver enzymes, [id number] protein malnutrition, acute respiratory failure. PLAN: As above. TOMY GLEASON MD DR: CANDY/saw JOB#: [id number] / [id number]
[2017-08-01] MEDS: VANCOMYCIN 1.75 GM in IV NORMAL SALINE 500ML 500 ML IV SCH (17:24)
[2017-08-01] MEDS ORDERED: DIGOXIN IV 500 MCG/2 ML AMPUL. IV ONE (20:15)
--- NOTE | 2017-08-01 21:49 | PN ---
DATE: 07/31/2017 SUBJECTIVE: The patient with acute respiratory failure and acute congestive heart failure. The patient is resting fairly comfortably, although he is still not feeling very well, still very weak. OBJECTIVE: VITAL SIGNS: Blood pressure 107/80, respiratory rate 16, pulse of 103, and afebrile. HEENT: The patient's head was atraumatic, normocephalic. Eyes: PERRLA without jaundice. Mouth and throat were normal. LUNGS: Diminished, poor breath sounds. CARDIOVASCULAR: Irregularly irregular rhythm. ABDOMEN: Soft, protuberant, nontender. EXTREMITIES: With +2 pitting edema. The patient continues to show some diuresis. Cardiology is affecting that. Weight still look accurate. He has gone from 259 to 272 possible. In any case, we will continue to monitor her on the Lasix with the electronic heat seal operator. Otherwise, blood pressure 110/80, respiratory rate 16, pulse 110 on the average. The patient's head was atraumatic. As noted above. IMPRESSION: The patient has acute encephalopathy. New onset of atrial fibrillation with rapid ventricular response, acute systolic congestive heart failure, sepsis, elevated liver enzymes, and acute respiratory failure, [id number] protein malnutrition, acute renal failure, hypokalemia. TOMY GLEASON MD DR: CANDY/saw JOB#: [id number] / [id number]
[2017-08-02] VITALS (13 sets, daily range): BP systolic 90–136; BP diastolic 60–72
[2017-08-02] MEDS: METOPROLOL TART IMMED RELEASE 25 MG TABLET PO SCH (01:04)
[2017-08-02] MEDS: HEPARIN 25,000UTS/500ML PREMIX 500 ML IV PRN (01:08)
[2017-08-02] MEDS: PIPERACILLIN/TAZOBACTAM 3.375 GM in IV NORMAL SALINE 50ML 50 ML IV SCH ×3 (02:45→14:18)
--- NOTE | 2017-08-02 04:22 | PN ---
DATE: SUBJECTIVE: The patient lying in bed, drowsy, but he is arousable. He is not able to provide any further information. Apparently, he is not complaining. OBJECTIVE: GENERAL: Obese white male, not in acute distress. VITAL SIGNS: Blood pressure 111/71, respiratory rate 16, pulse is 95, afebrile, and oxygen saturation 97% on room air. HEENT: Normocephalic and atraumatic, otherwise unremarkable. NECK: Supple. Negative for carotid bruit, lymphadenopathy or JVD. LUNGS: Diminished breath sounds bilaterally. CARDIOVASCULAR: Irregularly irregular rhythm, normal S1, S2. ABDOMEN: Soft. Bowel sounds positive. EXTREMITIES: A 3+ pitting edema bilaterally. NEUROLOGIC: The patient is drowsy, but arousable. He follows 1 simple step command. Speech is slow, but sometimes not legible. Memory and judgment, abstract thinking are impaired. Cranial nerves, there is a mild right facial asymmetry, otherwise unremarkable. Motor examination: The patient moves his extremities with mild right upper and lower extremity weakness with a strength of 4/5 compared to those on the left side. Sensory examination revealed normal pinprick and light touch senses throughout. Deep tendon reflexes were hypoactive with absent Achilles responses. Gait not tested. DIAGNOSTIC AND IMAGING DATA: Abdomen ultrasound consistent with cholelithiasis and right renal calculus with a 4.5 cm abdominal aortic aneurysm. ___ revealed intermediate probability of pulmonary emboli. LABORATORY DATA: CBC revealed white blood cells of 8000, hemoglobin 13.8, hematocrit 43, and platelet count 143,000. IMPRESSION: 1. Acute encephalopathy, infectious versus metabolic. 2. Multiple medical problems include atrial fibrillations, congestive heart failure, abnormal echocardiogram with ejection fraction of 35, renal failure and elevated liver enzymes, and intermediate pulmonary embolism. RECOMMENDATIONS: 1. Continue with current management with antibiotics. 2. Continue with Cardiology recommendations. 3. Chest CT angio. M Barbara ISRAEL MD DR: JOLENE/saw JOB#: [id number] / [id number]
[2017-08-02] MEDS: IPRATRPIUM/ALBUTEROL 0.5/2.5MG 3 ML NEBU. NEB SCH ×2 (05:17→13:21)
[2017-08-02] MEDS ORDERED: METOPROLOL TART IMMED RELEASE 50 MG TABLET PO SCH (09:00)
[2017-08-02] MEDS ORDERED: DIGOXIN 125 MCG TABLET PO SCH (09:00)
[2017-08-02] MEDS: POTASSIUM CHLORIDE 8 MEQ TABLET.ER. PO SCH (09:03)
[2017-08-02] MEDS: LACTOBACILLUS RHAMNOSUS GG 1 CAPSULE. PO SCH (09:03)
[2017-08-02] MEDS: NYSTATIN TOPICAL POWDER 15GM BOTTLE. TP SCH (09:04)
[2017-08-02] MEDS ORDERED: APIXABAN 5 MG TABLET. PO SCH (09:15)
--- NOTE | 2017-08-02 09:24 | PDOC ---
PROGRESS NOTES Diagnosis Problem Problems Medical Problems: (1) Altered level of consciousness Status: Acute (2) Atrial fibrillation with RVR Status: Acute (3) CHF (congestive heart failure) Status: Acute (4) CO2 narcosis Status: Acute (5) Elevated bilirubin Status: Acute (6) Lactic acidosis Status: Acute (7) Renal insufficiency Status: Acute (8) SIRS (systemic inflammatory response syndrome) Status: Acute Assessment Problems Medical Problems: (1) Altered level of consciousness Status: Acute (2) Atrial fibrillation with RVR Status: Acute (3) CHF (congestive heart failure) Status: Acute (4) CO2 narcosis Status: Acute (5) Elevated bilirubin Status: Acute (6) Lactic acidosis Status: Acute (7) Renal insufficiency Status: Acute (8) SIRS (systemic inflammatory response syndrome) Status: Acute 1. Altered mental status - appears to be resolved. neuro following. 2. atrial fibrillation with RVR - improved heart rate control on oral metoprolol. Off esmolol and pressors. Add oral dig and check dig level after 5th dose. 3. acute on chronic systolic heart failure - EF 35% by echo. Better compensated since admission. We will consider outpatient ischemic evaluation. Continue current medical regimen. 4. hypotension - off pressors. blood pressure controlled. 5. Acute on chronic renal insufficiency - Cr down to 1.4 today. mgmt per PCP 6. Intermediate VQ - on heparin drip. Ok with resuming Eliquis from CV standpoint. Mgmt per PCP. Subjective denies chest pain, dyspnea or palpitations. continued edema in lower extremities. Objective tele - atrial fibrillation rate 100-110. Vital Signs Date Time Temp Pulse Resp B/P (MAP) Pulse Ox O2 Delivery O2 Flow Rate FiO2 08/02/17 09:04 99 08/02/17 08:00 Room Air 08/02/17 07:56 98.1 16 118/68 (85) 94 08/01/17 04:00 1.0 Intake and Output 08/02/17 07:00 Intake Total 940 ml Output Total 250 ml Balance 690 ml Intake Oral 840 ml IV Total 100 ml Output Urine Total 250 ml # Bowel Movements 2 Abdomen: Normal bowel sounds, Soft, No tenderness Heart: Other (IRR, no gallops, clicks or rubs) Extremities: No cyanosis, Other (3+ edema bilaterally) Lungs: Other (decreased bases) Neck: No JVD Psych/Mental Status: Mood NL Review of Relevant I have reviewed the following items carla (where applicable) has been applied. Labs Laboratory Tests Test 08/01/17 05:12 08/02/17 06:29 White Blood Count 8.0 x10^3/uL (4.0-11.0) Red Blood Count 4.31 x10^6/uL (4.30-5.70) Hemoglobin 13.8 g/dL (13.0-17.5) Hematocrit 43.0 % (39.0-53.0) Mean Corpuscular Volume 100 fL (79-100) Mean Corpuscular Hemoglobin 32 pg (25-35) Mean Corpuscular Hemoglobin Concent 32 g/dL (31-37) Red Cell Distribution Width 17.3 % (11.5-14.5) Platelet Count 143 x10^3/uL (140-400) Neutrophils (%) (Auto) 71 % (31-73) Lymphocytes (%) (Auto) 13 % (24-48) Monocytes (%) (Auto) 14 % (0-9) Eosinophils (%) (Auto) 3 % (0-3) Basophils (%) (Auto) 0 % (0-3) Neutrophils # (Auto) 5.7 x10^3uL (1.8-7.7) Lymphocytes # (Auto) 1.0 x10^3/uL (1.0-4.8) Monocytes # (Auto) 1.1 x10^3/uL (0.0-1.1) Eosinophils # (Auto) 0.2 x10^3/uL (0.0-0.7) Basophils # (Auto) 0.0 x10^3/uL (0.0-0.2) Activated Partial Thromboplast Time 64 SEC (23-33) 57 SEC (23-33) Sodium Level 141 mmol/L (136-145) Potassium Level 3.7 mmol/L (3.5-5.1) Chloride Level 105 mmol/L (98-107) Carbon Dioxide Level 26 mmol/L (21-32) Anion Gap 10 (6-14) Blood Urea Nitrogen 29 mg/dL (8-26) Creatinine 1.4 mg/dL (0.7-1.3) Estimated GFR (Cockcroft-Gault) 49.4 BUN/Creatinine Ratio 21 (6-20) Glucose Level 100 mg/dL (70-99) Calcium Level 7.8 mg/dL (8.5-10.1) Total Bilirubin 1.4 mg/dL (0.2-1.0) Aspartate Amino Transf (AST/SGOT) 134 U/L (15-37) Alanine Aminotransferase (ALT/SGPT) 486 U/L (16-63) Alkaline Phosphatase 72 U/L (46-116) Total Protein 6.2 g/dL (6.4-8.2) Albumin 2.3 g/dL (3.4-5.0) Albumin/Globulin Ratio 0.6 (1.0-1.7) Microbiology 07/28/17 Blood Culture - Preliminary, Resulted NO GROWTH AFTER 4 DAYS Medications Current Medications Metoprolol Tartrate (Lopressor Vial) 5 mg STK-MED ONCE IV ; Start 07/28/17 at 09: 13; Stop 07/28/17 at 09:14; Status DC Metoprolol Tartrate (Lopressor Vial) 5 mg 1X ONCE IV Last administered on at 09:26; Start 07/28/17 at 09:30; Stop 07/28/17 at 09:31; Status DC Digoxin (Lanoxin) 500 mcg 1X ONCE IV Last administered on 07/28/17at 09:51; Start 07/28/17 at 09:30; Stop 07/28/17 at 09:31; Status DC Ceftriaxone Sodium 1 gm/ Sodium Chloride 50 ml @ 100 mls/hr 1X ONCE IV ; Start 07/28/17 at 10:30; Stop 07/28/17 at 10:30; Status DC Ceftriaxone Sodium (Rocephin) 1 gm 1X ONCE IVP Last administered on 07/28/17at 10:46; Start 07/28/17 at 10:30; Stop 07/28/17 at 10:31; Status DC Esmolol HCl 250 ml @ 0 mls/hr 1X ONCE IV ; Start 07/28/17 at 10:45; Stop at 10:52; Status DC Verapamil HCl (Verapamil HCl) 5 mg 1X ONCE IV Last administered on 07/28/17at 11 :22; Start 07/28/17 at 11:15; Stop 07/28/17 at 11:18; Status DC Esmolol HCl 250 ml @ 0 mls/hr 1X ONCE IV Last administered on 07/28/17at 17:15; Start 07/28/17 at 13:30; Stop 07/28/17 at 13:31; Status DC Ceftriaxone Sodium (Rocephin) 1 gm Q24H IVP ; Start 07/29/17 at 10:30; Stop 01/06 at 10:30; Status DC Esmolol HCl 250 ml @ 0 mls/hr CONT PRN IV SEE I/O RECORD Last administered on at 16:33; Start 07/28/17 at 15:45; Stop 08/02/17 at 09:07; Status DC Albuterol/ Ipratropium (Duoneb) 3 ml RTQID NEB Last administered on 08/02/17at 05:17; Start 07/28/17 at 16:00 Nystatin (Nystop) 1 tisha BID TP Last administered on 08/02/17at 09:04; Start 07/28 at 21:00 Piperacillin Sod/ Tazobactam Sod (Zosyn Per Pharmacy) 1 each PRN DAILY PRN MC SEE COMMENTS Last administered on 08/01/17at 07:57; Start 07/28/17 at 17:00 Vancomycin HCl (Vanco Per Pharmacy) 1 each PRN DAILY PRN MC SEE COMMENTS Last administered on 08/01/17at 07:59; Start 07/28/17 at 17:00 Vancomycin HCl 2 gm/Sodium Chloride 500 ml @ 250 mls/hr 1X ONCE IV Last administered on 07/28/17at 17:14; Start 07/28/17 at 17:30; Stop 07/28/17 at 19:29; Status DC Furosemide (Lasix) 80 mg 1X ONCE IVP ; Start 07/28/17 at 17:15; Stop 07/28/17 at 17:15; Status DC Furosemide (Lasix) 80 mg 1X ONCE IVP Last administered on 07/28/17at 18:32; Start 07/28/17 at 17:15; Stop 07/28/17 at 17:16; Status DC Ondansetron HCl (Zofran) 4 mg PRN Q8HRS PRN IV NAUSEA/VOMITING Last administered on 08/01/17at 18:08; Start 07/28/17 at 19:00 Piperacillin Sod/ Tazobactam Sod 3.375 gm/Sodium Chloride 50 ml @ 100 mls/hr Q6H IV Last administered on 08/02/17at 09:03; Start 07/28/17 at 20:00 Vancomycin HCl 1.75 gm/Sodium Chloride 500 ml @ 250 mls/hr Q24H IV Last administered on 08/01/17at 17:24; Start 07/29/17 at 17:00 Vancomycin HCl (Vancomycin Trough Level) 1 each 1X ONCE MC Last administered on 07/30/17at 16:00; Start 07/30/17 at 16:30; Stop 07/30/17 at 16:31; Status DC Lactobacillus Rhamnosus (Culturelle) 1 cap BID PO Last administered on at 09:03; Start 07/28/17 at 21:00 Enoxaparin Sodium (Lovenox) 40 mg Q24H SQ Last administered on 07/30/17at 07:24 ; Start 07/29/17 at 09:00; Stop 07/30/17 at 10:16; Status DC Phenylephrine HCl 20 mg/Sodium Chloride 252 ml @ 22.68 mls/ hr CONT PRN IV SEE I/O RECORD Last administered on 07/31/17at 23:19; Start 07/29/17 at 10:00 Albumin Human 50 ml @ 50 mls/hr 1X ONCE IV Last administered on 07/29/17at 10: 26; Start 07/29/17 at 10:30; Stop 07/29/17 at 11:29; Status DC Metoprolol Tartrate (Lopressor) 25 mg Q6HRS PO Last administered on 08/02/17at 01:04; Start 07/30/17 at 12:00; Stop 08/02/17 at 08:36; Status DC Potassium Chloride (Klor-Con 8) 8 meq BID PO Last administered on 08/02/17at 09: 03; Start 07/30/17 at 10:00 Enoxaparin Sodium (Lovenox 120mg Syringe) 120 mg Q12HR SQ ; Start 07/30/17 at 21 :00; Stop 07/30/17 at 21:00; Status DC Heparin Sodium (Porcine) (Heparin Sq) 5,000 unit Q8HRS SQ ; Start 07/30/17 at 22 :00; Status Cancel Potassium Chloride 50 ml @ 50 mls/hr 1X ONCE IV Last administered on at 15:55; Start 07/30/17 at 15:00; Stop 07/30/17 at 15:59; Status DC Heparin Sodium/ Dextrose 500 ml @ 0 mls/hr CONT PRN IV SEE I/O RECORD; Start at 15:00; Stop 07/30/17 at 15:09; Status DC Heparin Sodium/ Dextrose 500 ml @ 0 mls/hr CONT PRN IV SEE I/O RECORD Last administered on 08/02/17at 01:08; Start 07/30/17 at 15:15; Stop 08/02/17 at 09:07 ; Status DC Vancomycin HCl (Vancomycin Trough Level) 1 each 1X ONCE MC ; Start 08/04/17 at 16:30; Stop 08/04/17 at 16:31 Digoxin (Lanoxin) 500 mcg 1X ONCE IV Last administered on 08/01/17at 20:36; Start 08/01/17 at 20:15; Stop 08/01/17 at 20:16; Status DC Digoxin (Lanoxin) 125 mcg DAILY PO Last administered on 08/02/17at 09:03; Start 08/02/17 at 09:00 Metoprolol Tartrate (Lopressor) 50 mg BID PO Last administered on 08/02/17at 09: 04; Start 08/02/17 at 09:00 Apixaban (Eliquis) 5 mg BID PO ; Start 08/02/17 at 09:15 Vitals/I & O Vital Sign - Last 24 Hours 08/01/17 08/01/17 08/01/17 08/01/17 10:06 10:20 11:30 12:00 Pulse 95 93 Resp 16 16 B/P (MAP) 111/71 (84) 91/56 (68) Pulse Ox 97 97 96 O2 Delivery Room Air Room Air Room Air Room Air 08/01/17 08/01/17 08/01/17 08/01/17 12:08 12:40 13:35 14:32 Pulse 91 93 100 96 Resp 14 14 14 B/P (MAP) 91/56 110/53 (72) 114/80 (91) 97/73 (81) Pulse Ox 95 97 94 O2 Delivery Room Air Room Air Room Air 08/01/17 08/01/17 08/01/17 08/01/17 15:16 15:30 16:00 16:00 Temp 97.7 Pulse 96 98 Resp 14 14 B/P (MAP) 103/74 (84) 104/65 (78) Pulse Ox 96 99 O2 Delivery Room Air Room Air Room Air 08/01/17 08/01/17 08/01/17 08/01/17 16:07 17:07 17:49 19:30 Pulse 82 118 134 Resp 14 16 B/P (MAP) 102/81 (88) 96/64 109/71 (84) Pulse Ox 95 97 92 O2 Delivery Room Air Room Air Room Air 08/01/17 08/01/17 08/01/17 08/01/17 19:30 20:30 20:30 20:36 Pulse 128 135 Resp 16 B/P (MAP) 126/76 (93) Pulse Ox 92 94 O2 Delivery Room Air Room Air Room Air 08/01/17 08/01/17 08/01/17 08/02/17 21:30 22:30 23:45 00:01 Pulse 116 104 94 Resp 16 16 16 B/P (MAP) 95/64 (74) 111/69 (83) 111/69 (83) Pulse Ox 92 96 94 O2 Delivery Room Air Room Air Room Air Room Air 08/02/17 08/02/17 08/02/17 08/02/17 01:00 01:04 02:00 03:00 Pulse 94 104 94 102 Resp 16 16 18 B/P (MAP) 116/72 (87) 111/69 108/61 (77) 98/62 (74) Pulse Ox 91 92 O2 Delivery Room Air Room Air Room Air 08/02/17 08/02/17 08/02/17 08/02/17 03:30 04:00 05:00 05:20 Pulse 100 105 Resp 16 16 B/P (MAP) 110/71 (84) 90/60 (70) Pulse Ox 92 94 93 O2 Delivery Room Air Room Air Room Air Room Air 08/02/17 08/02/17 08/02/17 08/02/17 07:56 08:00 09:03 09:04 Temp 98.1 Pulse 100 95 99 Resp 16 B/P (MAP) 118/68 (85) Pulse Ox 94 O2 Delivery Room Air Room Air Intake and Output 08/01/17 08/01/17 08/02/17 15:00 23:00 07:00 Intake Total 940 ml Output Total 250 ml Balance 940 ml -250 ml DILMA MONAE APRN August 02, 2017 09:24
[2017-08-02] MEDS ORDERED: FUROSEMIDE 40 MG/4 ML VIAL IVP ONE (13:15)
[2017-08-02] MEDS ORDERED: ALBUMIN HUMAN 25% 50 ML IV ONE (13:15)
[2017-08-02] MEDS ORDERED: ONDA4VIA4 IV (14:39)
[2017-08-02] MEDS ORDERED: DIGO125T PO (14:39)
[2017-08-02] MEDS ORDERED: LACT1CAP19 PO (14:39)
[2017-08-02] MEDS ORDERED: POTA8TAB PO (14:39)
[2017-08-02] MEDS ORDERED: NYST60PO TP (14:39)
[2017-08-02] MEDS ORDERED: PIPE2.255 MC (14:39)
[2017-08-02] MEDS ORDERED: VANC1VIA3 MC (14:39)
[2017-08-02] MEDS ORDERED: METO50TA6 PO (14:39)
[2017-08-02] MEDS ORDERED: IPRA3AMP NEB (14:39)
[2017-08-02] MEDS ORDERED: APIX5TAB3 PO (14:39)
--- NOTE | 2017-08-02 23:45 | PN ---
DATE: 08/02/2017 SUBJECTIVE: The patient denies any new medical neurological complaints. OBJECTIVE: GENERAL: A well-developed, well-nourished male, not in acute distress. VITAL SIGNS: Blood pressure is 97/61, respiratory rate 16, pulse is 99, oxygen saturation is 94%, and temperature is 98.1. HEENT: Normocephalic, atraumatic, otherwise unremarkable. NECK: Supple. Negative for carotid bruit, lymphadenopathy, JVD or thyromegaly. LUNGS: With diminished breath sounds. CARDIOVASCULAR: Regular rhythm, normal S1, S2. ABDOMEN: Soft. Bowel sounds positive. EXTREMITIES: 2+ pitting edema. NEUROLOGICAL EXAM: 1. Mental Status: The patient is awake, oriented to place and himself. His speech is slow. There is no language dysfunction. Memory, judgment, and thinking are poor. The patient denies hallucination or delusion. 2. Cranial nerves intact except for mild right central facial asymmetry. 3. Motor Examination: No focal muscle bulk was seen. The tone is normal. The strength is 4/5 in the right upper and lower extremities compared to that on the left side. 4. Sensory examination revealed diminished pinprick and light touch senses in patchy distributions in the right upper and lower extremities. Deep tendon reflexes were symmetric and hypoactive with absent Achilles responses. Gait not tested. IMPRESSION: 1. Acute encephalopathy, which is slowly improved. 2. Multiple medical problems include atrial fibrillations, congestive heart failure, renal failure with elevated liver enzymes, and intermediate pulmonary embolism. RECOMMENDATIONS: Continue with the current management with antibiotic and Cardiology recommendations. The patient is neurologically stable. M Barbara ISRAEL MD DR: JOLENE/saw JOB#: [id number] / [id number]
--- NOTE | 2017-08-03 08:55 | RAD ---
Bilateral lower extremity venous ultrasound, 07/30/2017: History: Bilateral leg edema, abnormal VQ scan Duplex evaluation of the deep veins in the lower extremities was performed including grayscale, color-flow and spectral Doppler analysis. The femoral and popliteal veins demonstrate normal compressibility and normal responses to distal augmentation maneuvers. Color imaging of those vessels shows no evidence of intraluminal clot. The visualized deep veins in both calves are patent. IMPRESSION: There is no sonographic evidence of deep vein thrombosis in either lower extremity.
== END 2017-08-02 16:22 | DRG 871 ==
LOC: ER 09:11 → ICU 11:05
PROVIDERS: ADMIT Family Medicine; ATTEND Family Medicine
PROC: 5A09357 Assistance with Respiratory Ventilation, Less than 24 Consecutive Hours, Continuous Positive Airway Pressure (ICD-10-PCS; 2017-07-28)
PROC: 02HV33Z Insertion of Infusion Device into Superior Vena Cava, Percutaneous Approach (ICD-10-PCS; principal; 2017-07-30)
PROC: B548ZZA Ultrasonography of Superior Vena Cava, Guidance (ICD-10-PCS; 2017-07-30)
DX: A41.9 Sepsis, unspecified organism (principal); G93.40 Encephalopathy, unspecified; I26.99 Other pulmonary embolism without acute cor pulmonale; E43 Unspecified severe protein-calorie malnutrition; J96.00 Acute respiratory failure, unspecified whether with hypoxia or hypercapnia; I50.43 Acute on chronic combined systolic (congestive) and diastolic (congestive) heart failure; N17.9 Acute kidney failure, unspecified; I48.2 Chronic atrial fibrillation; E87.0 Hyperosmolality and hypernatremia; I69.351 Hemiplegia and hemiparesis following cerebral infarction affecting right dominant side; I13.0 Hypertensive heart and chronic kidney disease with heart failure and stage 1 through stage 4 chronic kidney disease, or unspecified chronic kidney disease; G31.9 Degenerative disease of nervous system, unspecified; G40.909 Epilepsy, unspecified, not intractable, without status epilepticus; E87.6 Hypokalemia; I71.4 Abdominal aortic aneurysm, without rupture; J44.9 Chronic obstructive pulmonary disease, unspecified; K76.0 Fatty (change of) liver, not elsewhere classified; K80.20 Calculus of gallbladder without cholecystitis without obstruction; N18.3 Chronic kidney disease, stage 3 (moderate); N20.0 Calculus of kidney; Z87.891 Personal history of nicotine dependence; Z68.37 Body mass index [BMI] 37.0-37.9, adult; Z79.899 Other long term (current) drug therapy
CPT/HCPCS: 36415; 36569; 36600; 70450; 71045; 76700; 76705; 78582; 80047; 80048; 80053; 80076; 80202; 80307; 81001; 82140; 82436; 82550; 82553; 82803; 82977; 83605; 83690; 83735; 83880; 84133; 84300; 84443; 84484; 85025; 85027; 85379; 85610; 85730; 87040; 87641; 93005; 93306; 93970; 94640; 96374; 96375; 99292; A9540; A9558; J0696; J1160; J1650; J1940; J2405; J2543; J3370; J3480; J3490; J7040; J7050; J7620; P9046; 92610; 97116; 97530; 99291-25; G0479